=== PATIENT | female | born 1995 | race Hispanic/Latino ===

== ENCOUNTER 2025-04-22 03:31 | Inpatient (IN) | payer SELFPAY ==
[2025-04-22] VITALS (7 sets, daily range): BP systolic 90–119; BP diastolic 57–69; PULSE 57–74; RESP 12–18; TEMP 36.5–36.8; O2SAT 97–100; BMI 25.8; BMI 22.6
--- NOTE | 2025-04-22 03:45 | CT_ITS ---
PROCEDURE: ABDOMEN/PELVIS W IV CONT ONLY 04/22/2025 REASON FOR EXAM: ABD PAIN TECHNIQUE: Procedure Code: [id number] Modality: CT Procedure: ABDOMEN/PELVIS W IV CONT ONLY Coronal and Sagittal reconstruction series were provided. CONTRAST: isovue 370 VOLUME: 100 mL One or more dose reduction techniques were used (e.g., Automated exposure control, adjustment of the mA and/or kV according to patient size, use of iterative reconstruction technique. RADIATION DOSE SUMMARY: CTDI Vol 13.71 mGy DLP :713.64 mGycm COMPARISON: none FINDINGS: Average sized liver showing homogenous parenchymal attenuation. Mild intra and extra-hepatic biliary tracts dilatation down to the distal CBD with no obvious obstructing masses. Distended gall bladder showing no radiodense calculi. Normal appearance of the pancreas with clear surrounding fat planes. The spleen, adrenal glands, aorta and IVC are unremarkable. Both kidneys are of average size and showing smooth outline with preserved parenchymal thickness. No renal calculi. No hydronephrosis. Distension of the urinary bladder showing minimal uniform mural thickening with no obvious masses. No obvious masses related to the pelvic viscera. An IUCD is noted. Dilated parametrial veins. Mild free pelvic fluid, likely physiological. The appendix appears unremarkable. No right iliac inflammatory changes. Colonic fecal loading The small bowel loops are unremarkable. The stomach is unremarkable. No free air. No obvious pathologically enlarged lymph nodes. Scanned osseous structures show no osseous destruction. Scanned lung bases show no obvious abnormalities. CT/Abdomen/Pelvis W IV Cont ONLY IMPRESSION: Mild intra and extra-hepatic biliary tracts dilatation down to the distal CBD w ith no obvious obstructing masses. Advise sonography correlation. No acute pelvi-abdominal abnormalities, collections or free air. Reading Location: [place] [id number]
[2025-04-22] MEDS: DiphenhydrAMINE 50 MG/ML Syringe 25 MG IV ×2 (03:50→06:43)
[2025-04-22] MEDS: 0.9% Normal Saline (1000mL) 1,000 ML 999 ML IV (03:50)
[2025-04-22 03:53] LABS: Hematocrit 34.9 % (37-47); Hemoglobin 11.3 g/dL (12.0-15.0); Immature Granulocytes Count 0.100 X10^3/uL (0.0-0.0); Mean Corp Hgb Conc 32.4 g/dL (32-36); Mean Corpuscular Volume 84.9 fL (81-99); Mean Platelet Vol. 10.4 fl (6.2-12.0); NRBC Flagged by Analyzer 0 % (0-5); Platelet Count 214 K/mm3 (150-450); RBC Distribution Width CV 14.6 % (11.6-14.6); RBC Distribution Width SD 45.1 fl (35.1-43.9); Red Blood Count 4.11 M/mm3 (4.2-5.4); White Blood Count 15.3 K/mm3 (4.4-11.0)
[2025-04-22 04:08] LABS: Internal QC Validated? YES +Cl - CLEAR BKGD; Pregnancy, Serum, hCG Quali. NEGATIVE Negative; Record Kit Lot#, Serum Preg. 0000980607
[2025-04-22] MEDS: HYDROmorphone 0.5 MG/0.5 ML SYRINGE IV ×3 (04:24→06:40)
[2025-04-22 04:35] LABS: AST(SGOT) 731 U/L (<=31); Alanine Aminotransfer ALT/SGPT 1056 U/L (<=34); Albumin, Serum 4.5 g/dL (3.5-5.0); Alkaline Phosphatase 352 U/L (35-104); Anion Gap 12 (5-15); BUN 9 mg/dL (4-19); BUN/Creat Ratio 18.3 RATIO (10-20); Bilirubin, Direct 0.60 mg/dL (0.00-0.30); Calcium,Total 9.2 mg/dL (7.6-11.0); Carbon Dioxide 22.1 mmol/L (21.0-32.0); Chloride 105 mmol/L (98-108); Estimated Creatinine Clearance 165.37 ml/min (50-250); Globulin 3.5 g/dL (2.2-4.2); Glucose 148 mg/dL (70-99); Lipase > 3000 U/L (13-75); Potassium 3.6 mmol/L (3.3-5.1)
[2025-04-22] MEDS: Pantoprazole Sodium 40 MG in 0.9% Normal Saline (100mL MB+) 100 ML 300 MG IV (04:38)
--- NOTE | 2025-04-22 04:41 | EX.ED.DYSGE1 ---
HPI History of Present Illness Chief Complaint: Abd Pain Informant: patient Narrative Narrative: Patient is a 30-year-old female who reports no significant past medical history and that she only takes omeprazole daily. She states that she has had nausea and vomiting for the past 1 to 2 days but that this evening she had sudden increase in midepigastric abdominal pain. She denies any fevers or chills. She denies any concern for . She states has been no recent trauma. She denies alcohol use or history of gallbladder disease. However because symptoms are worsening she presents for evaluation [facility] Medical History no medical history Home Medications ?Medication ?Instructions ?Recorded ?Last Taken ?Type omeprazole 20 mg capsule,delayed 20 mg PO DAILY 04/22/25 Unknown History release Allergy/AdvReac Type Severity Reaction Status Date / Time No Known Allergies Allergy Verified 04/22/25 03:34 Family History no significant family his Surgical History no surgical history Social History Smoking Status: Never smoker ROS ROS ED Constitutional Constitutional ED: Denies chills or fever(s) Eyes Eyes: Denies change in vision ENT ENT ED: Denies sore throat Cardiovascular Cardiovascular: Denies chest pain Respiratory/Chest Respiratory/Chest: Denies cough or dyspnea Gastrointestinal Gastrointestinal: Reports abdominal pain, nausea and vomiting; Denies diarrhea Genitourinary Genitourinary ED: Denies dysuria Musculoskeletal Musculoskeletal: Denies back pain or myalgias Integumentary Denies rash Neurologic Neurologic: Denies headache(s) Hematologic/Lymphatic Hematologic/Lymphatic: Denies easy bleeding or easy bruising EXAM Physical Exam Const Vital Signs: 04/22/25 03:34 04/22/25 05:32 Temperature 98.0 F Temperature Source Oral Pulse Rate 69 60 Respiratory Rate 18 12 Blood Pressure 105/63 119/61 Blood Pressure Mean 77 80 Pulse Ox 100 100 Oxygen Delivery Method Room Air Room Air Positive well nourished and well developed General Appearance ED: well developed; Negative for pallor HEENT HEENT Narrative: Normocephalic atraumatic Eyes PERRL and EOMs intact bilaterally General Eye ED: Negative for scleral icterus Neck supple Resp normal respiratory effort and clear to auscultation bilaterally Cardio regular rate and regular rhythm Rate: other Other Details: Heart is regular rate and rhythm no murmurs rubs or gallop Radial and carotid pulses are equal and symmetric GI non-distended and no masses GI Narrative: Abdomen is soft and nondistended with normal active bowel sounds Patient has pain with palpation and voluntary guarding in the midepigastric region No pulsatile mass No peritoneal signs Auscultation: normoactive bowel sounds Palpation: soft Back/Spine no CVA tenderness Extremity normal to inspection Neuro oriented x3, CN's II-XII intact bilaterally and no sensory deficits noted Sensorium / Orientation: alert Motor Exam: strength 5/5 throughout Psych Mood & Affect: anxious Skin no rashes or lesions noted, no wounds and skin turgor normal General Skin Exam: Negative for jaundice or pallor MDM MDM MDM Narrative Medical decision making narrative: Patient arrived to the ER stable vitals. She reported 1 to 2 days of recurrent bouts of nausea and vomiting but a recent onset of pain. With pain in the midepigastric region this could be gastritis versus pancreatitis versus biliary colic or acute cholecystitis. It could also be due to a complication. With these differentials in mind basic labs and a CT scan were ordered. Labs reveal leukocytosis at 15 with left shift as neutrophil count of 12.3. However the patient was writhing in pain this could all be due to stress response and not secondary infection. The patient's liver enzymes are elevated and her lipase is greater than 3000 concerning for gallstone pancreatitis. Her test was negative indicating this is not a complication. The CT scan showed no sign of pancreatic inflammation. It did document that the gallbladder was distended with mild dilation of the intra and extrahepatic biliary tract down to the common bile duct which would correlate more with gallstone pancreatitis. However as no gallstones were seen we have to assume they are non-radiopaque and we will therefore order an ultrasound for better evaluation. The case was discussed with administrative support coordinator Dr. Fernandez. He agrees with need for ultrasound at this time to further evaluate the gallbladder and pancreas. He does recommend patient be started on lactated Ringer's as well as Zosyn with concern for potential infection based on her elevated white count. He feels that as long as the ultrasound does not suggest acute cholecystitis then the patient will be safe for admission to the hospitalist with him on his consult to discuss need for MRCP or ERCP. at this time the patient's ultrasound is still pending and therefore she will be signed out to the day physician. History & Record Review Discussion w/independent historian: Patient and Friend Lab Data Attestation: I reviewed the patient's lab results. Labs: Laboratory Results - last 24 hr 04/22/25 04/22/25 03:40 04:42 WBC 15.3 H RBC 4.11 L Hgb 11.3 L Hct 34.9 L MCV 84.9 MCH 27.5 MCHC 32.4 RDW Std Deviation 45.1 H RDW Coeff of Gwendolyn 14.6 Plt Count 214 MPV 10.4 Immature Gran % (Auto) 0.700 Neut % (Auto) 80.7 H Lymph % (Auto) 10.9 L [place] % (Auto) 7.3 Eos % (Auto) 0.2 Baso % (Auto) 0.2 Absolute Neuts (auto) 12.3 H Absolute Lymphs (auto) 1.67 Nucleated RBC % 0 Sodium 139 Potassium 3.6 Chloride 105 Carbon Dioxide 22.1 Anion Gap 12 BUN 9 Creatinine 0.49 L Estim Creat Clear Calc 165.37 Est GFR (MDRD) Non-Af 130 BUN/Creatinine Ratio 18.3 Glucose 148 H Calcium 9.2 Total Bilirubin 1.39 H Direct Bilirubin 0.60 H AST 731 H ALT 1056 H Alkaline Phosphatase 352 H Total Protein 8.0 Albumin 4.5 Globulin 3.5 Lipase > 3000 H Serum , Qual NEGATIVE Ethyl Alcohol < 10.1 Radiography Diagnostic Testing: Clinical Impression(s) from Imaging Studies Abdomen/Pelvis CT 04/22/25 03:45 IMPRESSION: Mild intra and extra-hepatic biliary tracts dilatation down to the distal CBD with no obvious obstructing masses. Advise sonography correlation. No acute pelvi-abdominal abnormalities, collections or free air. Reading [facility] Management Discussion w/another healthcare provider: Development Manager Discharge Plan Dx/Rx/DC Orders Clinical Impression: Acute gallstone pancreatitis, Elevated liver enzymes, Nausea and vomiting Disposition Disposition: Acute Care Hospital [facility]
--- NOTE | 2025-04-22 04:59 | US_ITS ---
PROCEDURE: GALLBLADDER 04/22/2025 REASON FOR EXAM: ABNORMAL CT Biliary ductal dilatation noted on prior CT TECHNIQUE: Procedure Code: USGB Modality: US Procedure: GALLBLADDER COMPARISON: CT dated 04/22/2025 FINDINGS: Liver: The liver measures 16.3 cm in size length and demonstrates normal echogenicity. No focal mass. Mild intrahepatic biliary ductal dilatation noted. Gallbladder: There are multiple gallstones noted in the gallbladder. The gallbladder is distended. A positive sonographic Tsang's sign seen. Sludge is also appreciated. No pericholecystic fluid noted. Common bile duct: Common bile duct is distended measuring 9 mm. Pancreas: Visualized portions are sonographically unremarkable. Right kidney: The right kidney is normal in size measuring 11.6 cm in length. Normal corticomedullary differentiation without hydronephrosis or renal calculi. No stone or mass. US/Gallbladder IMPRESSION: Intra and extrahepatic biliary ductal dilatation with the CBD measuring up to 9 mm as noted on previous CT. There is no gallstone seen in the visible CBD. No definitive pancreatic head mass. V bruno cated clinically consider further evaluation with MRCP. Sludge and gallstones in the gallbladder. Reading Location: [id number]
[2025-04-22 05:13] LABS: Alcohol, Blood (Medical)-Serum < 10.1 mg/dL (<=10.0)
[2025-04-22] MEDS: 0.9% Normal Saline (1000mL) 1,000 ML 250 ML IV (05:34)
[2025-04-22] MEDS: Piperacil/Tazobactam 3.375 GM in 0.9% Normal Saline (50mL MB+) 50 ML IV (06:30)
[2025-04-22] MEDS: Lactated Ringers 1,000 ML 999 ML IV (07:20)
[2025-04-22 07:45] LABS: Mucous, Urine 0 SEEN /hpf (<or=2+); Red Blood Cells-Urine 0 SEEN /hpf (0-5)
--- NOTE | 2025-04-22 08:02 | MRI_ITS ---
PROCEDURE: MRCP ABDOMEN WITHOUT CONTRAST 04/22/2025 REASON FOR EXAM: PANCREATITIS TECHNIQUE: Procedure Code: MRIMRCP Modality: MR Procedure: MRCP ABDOMEN WITHOUT CONTRAST Multi planer multisequence imaging through the abdomen and biliary tree are performed. 3D MIP images are submitted for interpretation. COMPARISON: Previous CT and ultrasounds dated April 22, 2025 FINDINGS: Pancreas: Diffuse boggy appearance of the pancreas with subtle amount of fluid surrounding the pancreatic body and tail. No abnormal fluid collection. No ductal dilatation or mass.. Biliary: Cholelithiasis. No evidence of acute cholecystitis. The distal CBD tapers rapidly from 7 mm to normal caliber of the ampulla with possible stenosis of the distal CBD. No mass. No stone. Ascites: None Lymph Nodes: No lymphadenopathy the spleen, visible kidneys and adrenal glands appear normal. Visualized liver demonstrates no mass. Other: No soft tissue abnormality. Lung bases demonstrate normal signal. MRI/MRCP Abdomen without Contrast IMPRESSION: Cholelithiasis. Small amount of fluid surrounding the pancreas consistent with diagnosis of dow creatitis. No ductal dilatation or distinct mass. Mild dilatation of the common bile duct with an abrupt narrowing of the ampulla likely from a benign-appearing stricture. No choledocholithiasis or mass. Reading Location: [id number]
--- NOTE | 2025-04-22 08:03 | PCM.HP.STD ---
HPI - General General Date of Service: 04/22/25 Chief Complaint: abdominal pain HPI Narrative ALAN HAM, is a 30 F who presents with abdominal pain. This is a 30-year-old female who does not speak Jordanian presents with 2 days of abdominal pain. I asked the patient in Paraguayan if it is okay to use Google translate to which she replied yes. So our interaction was communicated through my limited Par[place]ayan but also using Google translate for dialogue. Patient complains of 2 days of abdominal pain in the epigastric region with associated nausea and vomiting. Was very intense. Presented to the emergency room where she was noted to have pancreatitis with lipase greater than 3000. Patient had a CAT scan that showed mild intra and extrahepatic biliary duct dilation down to the distal common bile duct with no obvious obstructing masses. Ultrasound showed biliary ductal dilation of the common bile duct of 9 mm. No gallstones noted within the visible common bile duct. Patient does drink alcohol occasionally but her last consumption of alcohol was about 3 weeks ago. [ ] PFSH Medical History no medical history Home Medications ?Medication ?Instructions ?Recorded ?Last Taken ?Type omeprazole 20 mg capsule,delayed 20 mg PO DAILY 04/22/25 Unknown History release Allergy/AdvReac Type Severity Reaction Status Date / Time No Known Allergies Allergy Verified 04/22/25 03:34 Family History no significant family his no significant family history Surgical History no surgical history Social History (Updated 04/22/25 @ 08:[address] Dung Agrawal, DO) Smoking Status: Never smoker alcohol intake: current alcohol intake frequency: a few times a month ROS ROS Narrative All review of systems were negative except as mentioned above in the history of present illness and the other review of systems. Vital Signs Vital Signs Vital Signs: 04/22/25 03:34 04/22/25 05:32 04/22/25 07:17 Temperature 36.7 C Temperature Source Oral Pulse Rate 69 60 65 Respiratory Rate 18 12 12 Blood Pressure 105/63 119/61 112/63 Blood Pressure Mean 77 80 79 Pulse Ox 100 100 97 Oxygen Delivery Method Room Air Room Air Room Air 04/22/25 07:58 Temperature 36.8 C Temperature Source Pulse Rate 74 Respiratory Rate 17 Blood Pressure 112/63 Blood Pressure Mean 79 Pulse Ox 100 Oxygen Delivery Method Weight Weight: 70.5 kg Body Mass Index (BMI) 25.8 Physical Exam Const alert and no apparent distress HEENT normocephalic and head/scalp atraumatic Resp normal respiratory effort, no retractions, no use of accessory muscles and clear to auscultation bilaterally Cardio regular rate, regular rhythm, S1 normal heart sound and S2 normal heart sound GI normal to inspection, nondistended, normoactive bowel sounds and soft to palpation GI Narrative: Epigastric abdominal pain with rebound. Extremity normal to inspection and full ROM Neuro Sensorium / Orientation: awake, alert, oriented to person, oriented to place and oriented to time Psych affect normal Results Lab / Micro Data Attestation: I reviewed the patient's lab results. 04/22/25 03:40 04/22/25 03:40 Labs: Laboratory Results - last 24 hr 04/22/25 03:40: WBC 15.3 H, RBC 4.11 L, Hgb 11.3 L, Hct 34.9 L, MCV 84.9, MCH 27.5, MCHC 32.4, RDW Std Deviation 45.1 H, RDW Coeff of Gwendolyn 14.6, Plt Count 214, MPV 10.4, Immature Gran % (Auto) 0.700, Neut % (Auto) 80.7 H, Lymph % (Auto) 10.9 L, [place] % (Auto) 7.3, Eos % (Auto) 0.2, Baso % (Auto) 0.2, Absolute Neuts (auto) 12.3 H, Absolute Lymphs (auto) 1.67, Nucleated RBC % 0, Sodium 139, Potassium 3.6, Chloride 105, Carbon Dioxide 22.1, Anion Gap 12, BUN 9, Creatinine 0.49 L, Estim Creat Clear Calc 165.37, Est GFR (MDRD) Non-Af 130, BUN/Creatinine Ratio 18.3, Glucose 148 H, Calcium 9.2, Total Bilirubin 1.39 H, Direct Bilirubin 0.60 H, AST 731 H, ALT 1056 H, Alkaline Phosphatase 352 H, Total Protein 8.0, Albumin 4.5, Globulin 3.5, Lipase > 3000 H, Serum , Qual NEGATIVE 04/22/25 04:42: Ethyl Alcohol < 10.1 Imaging Radiology Impression Abdomen/Pelvis CT 04/22/25 03:45 IMPRESSION: Mild intra and extra-hepatic biliary tracts dilatation down to the distal CBD with no obvious obstructing masses. Advise sonography correlation. No acute pelvi-abdominal abnormalities, collections or free air. Reading [id number] Gall[facility]adder Ultrasound 04/22/25 04:59 IMPRESSION: Intra and extrahepatic biliary ductal dilatation with the CBD measuring up to 9 mm as noted on previous CT. There is no gallstone seen in the visible CBD. No definitive pancreatic head mass. V indicated clinically consider further evaluation with MRCP. Sludge and gallstones in the gallbladder. Reading Location: [id number] Assessment & Plan Assessment/Plan (1) Acute gallstone pancreatitis: PLAN: No visible gallstone noted on CT nor abdominal imaging. Unclear if that has passed or if there may be biliary sludge or small stones just not visualized. IV fluids, pain control, clear liquid diet. The ED deformity they reached out to Dr. Fernandez of gastroenterology who will see the patient in consultation. Check an MRCP. Unclear if patient will require an ERCP. I did reach out to general surgery who will evaluate the case to see if patient would require a cholecystectomy at some point. PLAN: Plan VTE prophylaxis with SCDs. Charges/Coding Visit Charges Inpatient E&M: 88103 Init Hosp L2
[2025-04-22 08:35] LABS: Color, Urine Yellow (Yellow); Glucose, Dipstick 50 mg/dl (Normal); Ketone-Dipstick Negative (Negative); Leukocyte Esterase-Dipstick Negative /ul (Negative); Nitrite-Dipstick Negative (Negative); Occult Blood-Urine 10 /ul (Negative); Protein-Dipstick 30 mg/dl (Negative); Specific Gravity, Urine 1.010 (1.002-1.030); Urine Bilirubin Dipstick Negative (Negative)
[2025-04-22 08:44] LABS: Squamous Epithelial Cells - UA 0-5 SEEN /hpf (5-10)
[2025-04-22] MEDS: 0.9% Normal Saline (1000mL) 1,000 ML 150 ML IV ×2 (09:09→16:12)
[2025-04-22] MEDS: HYDROmorphone Inj 0.2 MG/ML SYRINGE IV ×3 (09:23→23:25)
[2025-04-22] MEDS: 0.9% Saline Lock 10 ML Syringe IV ×3 (10:55→16:12)
--- NOTE | 2025-04-22 10:55 | NURSING ---
MRI STAFF CALLED REQUESTING PT TO BE MEDICATED FOR NAUSEA. 4MG ZOFRAN GIVEN IV
--- NOTE | 2025-04-22 12:36 | CASEMGMT ---
Social Work- SW met with pt, using hand expansion envelope maker services (ID [id number] improvement [address]) to communicate with pt. Pt reports that she resided in [place] and has only been in [place] one week and, therefore, is not eligible for H[place] or [place]. Alaina/[employer] met with pt to verify ineligibility. Pt reports that she does plan to stay in [place] permanently. Pt reports that she lives with sister at [address] Pt has two kids, one of whom pt talked about enrolling in school. Pt reports that she has not been connected with any resources, but reports that I need help. SW followed up with Alaina to update on intent to stay. Alaina will continue to look into pt YAMILE status in [place]. REJI provided lithuanian printed resources for [place], [facility], [facility], and [facility]. Dr Cisneros reached out to REJI to discuss that she would like to perform a procedure OP. REJI reached out to SW security guard supervisor to ensure that an outpatient procedure would not be an issue due to self-pay status. REJI collaborated with security guard supervisor, charge nurse, bedside nurse, and Dr Cisneros. REJI remains available to follow. ASAF Benavidez
--- NOTE | 2025-04-22 19:43 | CON.PCM.GI_ITS ---
HPI Consult Data Date of Consult: 04/22/25 HPI Narrative Reason for Consultation: Pancreatitis HPI Narrative: ALAN HAM, is a 30-year-old woman presented to the ED with abdominal pain. She was discovered to have white blood cell count of 15.3, bilirubin 1.39, AST of 731, ALT of 1056, alkaline phosphatase of 352 and a lipase greater than 3000. She had a CT scan abdomen pelvis that showed intra and extrahepatic ductal dilation down to the CBD, distended gallbladder and a normal appearance of the pancreas with clear surrounding fat planes. She had a gallbladder ultrasound that showed intra and extrahepatic ductal dilation with a common bile duct up to 9 mm as seen on previous CT scan. No definitive pancreatic head mass. She had an MRCP that showed cholelithiasis and a small amount of fluid surrounding the pancreas consistent with a diagnosis of pancreatitis. Again dilation of the common bile duct was seen with an abrupt narrowing at the ampulla. I was consulted for management of acute pancreatitis in the setting of jaundice with cholestatic hepatitis. [facility] Medical History no medical history Home Medications ?Medication ?Instructions ?Recorded ?Last Taken ?Type omeprazole 20 mg capsule,delayed 20 mg PO DAILY Unknown History release Allergy/AdvReac Type Severity Reaction Status Date / Time No Known Allergies Allergy Verified 04/22/25 03:34 Family History no significant family his Surgical History no surgical history Social History Smoking Status: Never smoker alcohol intake: current alcohol intake frequency: a few times a month ROS Constitutional Constitutional: Denies fatigue, fever(s), poor appetite, weight gain or weight loss Gastrointestinal Gastrointestinal: Denies belching, bloating, change in bowel habits, change in stool character, chewing difficulty, coffee ground emesis, constipation, cramping, diarrhea, dyspepsia, dysphagia, early satiety, excessive flatus, fecal incontinence, heartburn, hematemesis, hematochezia, hemorrhoids, loose stools, melena, nausea, odynophagia, rectal bleeding, tenesmus, vomiting or weight changes Physical Exam Const alert and no apparent distress HEENT normocephalic and head/scalp atraumatic Resp normal respiratory effort, no retractions, no use of accessory muscles and clear to auscultation bilaterally Cardio regular rate, regular rhythm, S1 normal heart sound and S2 normal heart sound GI normal to inspection, nondistended, normoactive bowel sounds and soft to palpation GI Narrative: Epigastric abdominal pain with rebound. Extremity normal to inspection and full ROM Neuro Sensorium / Orientation: awake, alert, oriented to person, oriented to place and oriented to time Psych affect normal Lab / Micro Data 04/22/25 03:40 04/22/25 03:40 Labs: Laboratory Results - last 24 hr 04/22/25 03:40: WBC 15.3 H, RBC 4.11 L, Hgb 11.3 L, Hct 34.9 L, MCV 84.9, MCH 27.5, MCHC 32.4, RDW Std Deviation 45.1 H, RDW Coeff of Gwendolyn 14.6, Plt Count 214, MPV 10.4, Immature Gran % (Auto) 0.700, Neut % (Auto) 80.7 H, Lymph % (Auto) 10.9 L, [place] % (Auto) 7.3, Eos % (Auto) 0.2, Baso % (Auto) 0.2, Absolute Neuts (auto) 12.3 H, Absolute Lymphs (auto) 1.67, Nucleated RBC % 0, Sodium 139, Potassium 3.6, Chloride 105, Carbon Dioxide 22.1, Anion Gap 12, BUN 9, C reatinine 0.49 L, Estim Creat Clear Calc 165.37, Est GFR (MDRD) Non-Af 130, BUN/Creatinine Ratio 18.3, Glucose 148 H, Calcium 9.2, Total Bilirubin 1.39 H, D irect Bilirubin 0.60 H, AST 731 H, ALT 1056 H, Alkaline Phosphatase 352 H, Total Protein 8.0, Albumin 4.5, Globulin 3.5, Lipase > 3000 H, Serum , Qual NEGATIVE 04/22/25 04:42: Ethyl Alcohol < 10.1 04/22/25 07:40: Urine Color Yellow, Urine Clarity Clear, Urine pH 6.0, Ur Specific [place] 1.010, Urine Protein 30 H, Urine Glucose (UA) 50 H, Urine Ketones Negative, Urine Occult Blood 10 H, Urine Nitrite Negative, Urine Bilirubin Negative, Urine Urobilinogen Normal, Ur Leukocyte Esterase Negative, Urine RBC 0 SEEN, Urine WBC 0 SEEN, Ur Squamous Epith Cells 0-5 SEEN, Urine Bacteria 1+, Urine Mucus 0 SEEN Imaging Radiology Impression Abdomen/Pelvis CT 04/22/25 03:45 IMPRESSION: Mild intra and extra-hepatic biliary tracts dilatation down to the distal CBD with no obvious obstructing masses. Advise sonography correlation. No acute pelvi-abdominal abnormalities, collections or free air. [id number] Gall[facility] 04/22/25 04:59 IMPRESSION: Intra and extrahepatic biliary ductal dilatation with the CBD measuring up to 9 mm as noted on previous CT. There is no gallstone seen in the visible CBD. No definitive pancreatic head mass. V indicated clinically consider further evaluation with MRCP. Sludge and gallstones in the gallbladder. Reading Location: [facility] MRCP 04/22/25 08:02 IMPRESSION: Cholelithiasis. Small amount of fluid surrounding the pancreas consistent with diagnosis of pancreatitis. No ductal dilatation or distinct mass. Mild dilatation of the common bile duct with an abrupt narrowing of the ampulla likely from a benign-appearing stricture. No choledocholithiasis or mass. Reading Location: [id number] Assessment & Plan Assessment/Plan (1) Nausea and vomiting: (2) Elevated liver enzymes: (3) Acute gallstone pancreatitis: PLAN: Plan 30-year-old woman who presented with a chief complaint of abdominal pain. The pain is described as severe, located in the epigastric and right upper quadrant areas, and began approximately 24 hours prior to arrival. It is a new onset, constant pain that radiates to her back. She also reports associated nausea and one episode of non-bloody, non-bilious emesis. She denies fever, chills, diarrhea, or change in bowel habits. She also denies a history of alcohol use or recent heavy alcohol ingestion. Her last meal was a high-fat meal prior to the onset of symptoms. * Labs: * White Blood Cell (WBC): 15.3 (elevated) * Bilirubin: 1.39 (elevated) * Aspartate Aminotransferase (AST): 731 (markedly elevated) * Alanine Aminotransferase (ALT): 1056 (markedly elevated) * Alkaline Phosphatase (ALP): 352 (elevated) * Lipase: >3000 (markedly elevated) * Imaging: * CT Abdomen/Pelvis:?Demonstrated intra- and extrahepatic ductal dilation down to the common bile duct (CBD), a distended gallbladder, and a normal- appearing pancreas with clear surrounding fat planes. * Gallbladder Ultrasound:?Confirmed intra- and extrahepatic ductal dilation and common bile duct size of 9 mm. It also showed cholelithiasis but no definitive pancreatic head mass was seen. * Magnetic Resonance Cholangiopancreatography (MRCP):?Showed cholelithiasis and a small amount of peripancreatic fluid, consistent with pancreatitis. It confirmed dilation of the CBD with an abrupt narrowing at the ampulla. A: * Acute Biliary Pancreatitis:?This is the most likely diagnosis given the elevated lipase (>3 times the upper limit of normal) in the setting of characteristic abdominal pain and the identification of cholelithiasis. * Choledocholithiasis:?Strongly suspected, causing biliary obstruction. This is supported by the abnormal liver function tests (bilirubin, AST, ALT, ALP), dilated CBD on ultrasound, and the abrupt narrowing at the ampulla seen on MRCP. The imaging findings, in particular, the CBD dilation, make a persistently obstructing stone highly likely. While the MRCP itself is not infallible for detecting small stones, especially at the ampulla, the overall clinical picture is highly suggestive. * Cholestatic Hepatitis:?The marked elevation in liver enzymes (AST, ALT, ALP, and bilirubin) points towards a cholestatic injury pattern, likely secondary to the biliary obstruction from the suspected choledocholithiasis. * Differentials:?Other considerations for pancreatitis include alcohol, hypertriglyceridemia, or drugs, but these are less likely given the patient's history and imaging findings. Acute cholangitis is a concern given the potential for obstruction but is not yet diagnosed, as the patient is afebrile. P: * Admit to the hospital:?The patient requires inpatient management for acute pancreatitis and suspected choledocholithiasis. * Nil per os (NPO):?To rest the pancreas and minimize irritation. * Aggressive intravenous (IV) hydration:?To prevent dehydration and organ failure, a cornerstone of initial pancreatitis management. * Pain control:?Administer IV analgesics as needed. * ?For the management of gallstone pancreatitis and suspected choledocholithiasis. An endoscopic retrograde cholangiopancreatography (ERCP) is indicated for biliary decompression and stone removal, especially given the jaundice and persistent evidence of obstruction. N.p.o. after midnight for ERCP tomorrow. Charges/Coding Visit Charges Inpatient E&M: 73666 Init Hosp L3
[2025-04-22 22:17] LABS: Internal QC Validated? YES +Cl - CLEAR BKGD; Pregnancy, Urine Negative Negative; Record Kit Lot#,Urine Preg 980607
[2025-04-22] MEDS: Lactated Ringers 1,000 ML 100 ML IV (23:22)
[2025-04-23] VITALS (14 sets, daily range): BP systolic 94–112; BP diastolic 56–76; PULSE 58–79; RESP 15–18; TEMP 36.3–36.9; O2SAT 95–100; BMI 22.6
--- NOTE | 2025-04-23 06:00 | EKG12_ITS ---
Test Reason : PRE OP Blood Pressure : */* mmHG Vent. Rate : 65 BPM Atrial Rate : 214 BPM P-R Int : * ms QRS Dur : 210 ms QT Int : 482 ms P-R-T Axes : 45 95 201 degrees QTcB Int : 501 ms unable to determine rhythm baseline artifact, probable NSR Rightward axis Non-specific intra-ventricular conduction block Abnormal ECG No previous ECGs available Confirmed by Mateo Nation ([id number]), avid editor CHRISTOPHER CARRILLO ([id number]) on 04/23/2025 9:16:29 AM Referred By: GAURAV Confirmed By: Mateo Nation
[2025-04-23 06:32] LABS: Hematocrit 29.2 % (37-47); Hemoglobin 9.4 g/dL (12.0-15.0); Immature Granulocytes Count 0.030 X10^3/uL (0.0-0.0); Mean Corp Hgb Conc 32.2 g/dL (32-36); Mean Corpuscular Volume 86.1 fL (81-99); Mean Platelet Vol. 10.8 fl (6.2-12.0); NRBC Flagged by Analyzer 0 % (0-5); Platelet Count 206 K/mm3 (150-450); RBC Distribution Width CV 15.1 % (11.6-14.6); RBC Distribution Width SD 48.0 fl (35.1-43.9); Red Blood Count 3.39 M/mm3 (4.2-5.4); White Blood Count 8.8 K/mm3 (4.4-11.0)
[2025-04-23 07:10] LABS: AST(SGOT) 161 U/L (<=31); Alanine Aminotransfer ALT/SGPT 536 U/L (<=34); Albumin, Serum 3.6 g/dL (3.5-5.0); Alkaline Phosphatase 234 U/L (35-104); Anion Gap 8 (5-15); BUN 5 mg/dL (4-19); BUN/Creat Ratio 11.5 RATIO (10-20); Calcium,Total 8.5 mg/dL (7.6-11.0); Carbon Dioxide 23.8 mmol/L (21.0-32.0); Chloride 107 mmol/L (98-108); Estimated Creatinine Clearance 157.49 ml/min (50-250); Globulin 2.8 g/dL (2.2-4.2); Glucose 94 mg/dL (70-99); Potassium 3.0 mmol/L (3.3-5.1)
--- NOTE | 2025-04-23 07:22 | EX.PCM.CON.S ---
Assessment & Plan Assessment/Plan (1) Acute gallstone pancreatitis: (2) Elevated liver enzymes: (3) Nausea and vomiting: QUALIFIERS: Vomiting type: unspecified Qualified Code(s): R11.2 - Nausea with vomiting, unspecified PLAN: Plan I have been consulted in conjunction with Dr. Cisneros. She will independently evaluate this patient. Patient is a 30 y/o F whom is Tanzanian speaking only. She presented with a 1 month history of vomiting and intermittent abdominal pain. Patient has had a 2 day history of severe amount of abdominal pain in the RUQ and epigastric region. RUQ u/s and MRCP demonstrated dilated common bile duct with gallstones noted in the gallbladder and positive sonographic Tsang's sign. Patient is scheduled for an ERCP today with dr. Fernandez. Dr. Cisneros will plan to perform a robotic assisted laparoscopic cholecystectomy with possible cholangiogram. Procedure details, risks and benefits have been explained to the patient via ipad seismograph supervisor. Patient has had the opportunity to ask and have questions answered. Patient verbally understands and agrees with the proposed plan. Thank you for allowing us to participate in this patient's care. HPI Consult Data Date of Consult: 04/23/25 HPI Narrative Reason for Consultation: Acute gallstone pancreatitis HPI Narrative: ALAN HAM, is a 30 F who is Tanzanian speaking only, presents with acute onset of abdominal pain. Communication was provided via ipad seismograph supervisor during the entire visit. Patient states she has been vomiting for approximately 1 month. She associated the vomiting with greasy foods. She notes being placed on 20 mg omeprazole daily, which she states helped with her symptoms. She notes 2 days ago the abdominal pain became worse and was located in the epigastric region. She notes associated vomiting and nausea with the pain. She noted because of her symptoms she came into the ED. She notes a history of a approximately 13 years ago as her only abdominal surgery. She denies any previous cardiac or pulmonary concerns. She notes having 2 children. She is staying with her sister here in [place]. CT scan ab/pel, RUQ u/s, and MRCP were completed and demonstrated: IMPRESSION: Mild intra and extra-hepatic biliary tracts dilatation down to the distal CBD with no obvious obstructing masses. Advise sonography correlation. No acute pelvi-abdominal abnormalities, collections or free air. IMPRESSION: Intra and extrahepatic biliary ductal dilatation with the CBD measuring up to 9 mm as noted on previous CT. There is no gallstone seen in the visible CBD. No definitive pancreatic head mass. V indicated clinically consider further evaluation with MRCP. Sludge and gallstones in the gallbladder. IMPRESSION: Cholelithiasis. Small amount of fluid surrounding the pancreas consistent with diagnosis of pancreatitis. No ductal dilatation or distinct mass. Mild dilatation of the common bile duct with an abrupt narrowing of the ampulla likely from a benign-appearing stricture. No choledocholithiasis or mass. Labs: WBC 15.3--> 8.8, Hgb 11.3--> 9.4, Hct 34.9--> 29.2, Plt 214--> 206. Liver enzymes: T, Bili. 1.39--> 0.74, AST 731--> 161, ALT 1056--> 536, Alk Phos 352--> 234. Lipase >3000--> 543 PFSH Medical History no medical history Home Medications ?Medication ?Instructions ?Recorded ?Last Taken ?Type omeprazole 20 mg capsule,delayed 20 mg PO DAILY 04/22/25 Unknown History release Allergy/AdvReac Type Severity Reaction Status Date / Time No Known Allergies Allergy Verified 04/22/25 03:34 Family History no significant family his Surgical History no surgical history Social History Smoking Status: Never smoker alcohol intake: current alcohol intake frequency: a few times a month ROS Constitutional Constitutional: Reports systems reviewed and no addt'l complaints, except as documented Eyes Eyes: Reports systems reviewed and no addt'l complaints, except as documented ENT HEENT: Reports systems reviewed and no addt'l complaints, except as documented Cardiovascular Cardiovascular: Reports systems reviewed and no addt'l complaints, except as documented Respiratory/Chest Respiratory/Chest: Reports systems reviewed and no addt'l complaints, except as documented Gastrointestinal Gastrointestinal: Reports systems reviewed and no addt'l complaints, except as documented Genitourinary Genitourinary: Reports systems reviewed and no addt'l complaints, except as documented Musculoskeletal Musculoskeletal: Reports systems reviewed and no addt'l complaints, except as documented Integumentary Integumentary: Reports systems reviewed and no addt'l complaints, except as documented Neurologic Neurologic: Reports systems reviewed and no addt'l complaints, except as documented Psychiatric Psychiatric: Reports systems reviewed and no addt'l complaints, except as documented Endocrine Endocrinology: Reports systems reviewed and no addt'l complaints, except as documented Hematologic/Lymphatic Hematologic/Lymphatic: Reports systems reviewed and no addt'l complaints, except as documented Allergic/Immunologic Allergic/Immunologic: Reports systems reviewed and no addt'l complaints, except as documented Physical Exam Const alert, oriented x3 and no apparent distress HEENT normocephalic and head/scalp atraumatic Eyes PERRL Neck full ROM Resp normal respiratory effort and clear to auscultation bilaterally Cardio regular rate and regular rhythm GI GI Narrative: Abdomen- RUQ and epigastric pain with palpation. Soft. Positive bowel sounds no CVA tenderness Back/Spine no CVA tenderness Extremity normal to inspection Skin no rashes or lesions noted Neuro no focal motor deficits and no sensory deficits noted Psych mental status grossly normal and thought process normal Lab / Micro Data 04/23/25 05:59 04/23/25 05:59 Labs: Laboratory Results - last 24 hr 04/22/25 07:40: Urine Color Yellow, Urine Clarity Clear, Urine pH 6.0, Ur Specific [place] 1.010, Urine Protein 30 H, Urine Glucose (UA) 50 H, Urine Ketones Negative, Urine Occult Blood 10 H, Urine Nitrite Negative, Urine Bilirubin Negative, Urine Urobilinogen Normal, Ur Leukocyte Esterase Negative, Urine RBC 0 SEEN, Urine WBC 0 SEEN, Ur Squamous Epith Cells 0-5 SEEN, Urine Bacteria 1+, Urine Mucus 0 SEEN, Urine Test Negative 04/23/25 05:59: WBC 8.8, RBC 3.39 L, Hgb 9.4 L, Hct 29.2 L, MCV 86.1, MCH 27.7, MCHC 32.2, RDW Std Deviation 48.0 H, RDW Coeff of Gwendolyn 15.1 H, Plt Count 206, MPV 10.8, Immature Gran % (Auto) 0.300, Neut % (Auto) 62.1, Lymph % (Auto) 29.7, [place] % (Auto) 7.1, Eos % (Auto) 0.6, Baso % (Auto) 0.2, Absolute Neuts (auto) 5.4, Absolute Lymphs (auto) 2.60, Nucleated RBC % 0, Sodium 139, Potassium 3.0 L, Chloride 107, Carbon Dioxide 23.8, Anion Gap 8, BUN 5, Creatinine 0.47 L, Estim Creat Clear Calc 157.49, Est GFR (MDRD) Non-Af 131, BUN/Creatinine Ratio 11.5, Glucose 94, Calcium 8.5, Total Bilirubin 0.74, AST 161 H, ALT 536 H, Alkaline Phosphatase 234 H, Total Protein 6.4, Albumin 3.6, Globulin 2.8, Albumin/Globulin Ratio 1.3 Imaging Radiology Impression Gallbladder Ultrasound 04/22/25 04:59 IMPRESSION: Intra and extrahepatic biliary ductal dilatation with the CBD measuring up to 9 mm as noted on previous CT. There is no gallstone seen in the visible CBD. No definitive pancreatic head mass. V indicated clinically consider further evaluation with MRCP. Sludge and gallstones in the gallbladder. Reading Location: [facility] MRCP 04/22/25 08:02 IMPRESSION: Cholelithiasis. Small amount of fluid surrounding the pancreas consistent with diagnosis of pancreatitis. No ductal dilatation or distinct mass. Mild dilatation of the common bile duct with an abrupt narrowing of the ampulla likely from a benign-appearing stricture. No choledocholithiasis or mass. Reading Location: [facility] Charges/Coding Visit Charges Inpatient E&M: 02806 Init Hosp L2
--- NOTE | 2025-04-23 07:38 | PCM.PN.HOSP ---
Reason for Visit Chief Complaint: abdominal pain Subjective Subjective Using Google translate with the patient's permission and my limited Kazakh patient is feeling much better, but still having epigastric abdominal pain. Objective Data Objective Data Vital Signs: Vital Signs Temp Pulse Resp BP Pulse Ox O2 Del Method 36.6 C 68 16 105/70 99 Room Air 04/23/25 05:50 04/23/25 05:50 04/23/25 05:50 04/23/25 05:50 04/23/25 05:50 04/23/25 05:50 Oxygen Delivery Method Room Air Weight: 61.9 kg Body Mass Index (BMI) 22.6 Intake & Output: Intake and Output for Last 24 Hours 04/21/25 04/22/25 04/23/25 23:59 23:59 23:59 Intake Total 4459.17 / 4459.17 Balance 4459.17 / 4459.17 Lab / Micro Data 04/23/25 05:59 04/23/25 05:59 Labs: Laboratory Results - last 24 hr 04/22/25 07:40: Urine Color Yellow, Urine Clarity Clear, Urine pH 6.0, Ur Specific [place] 1.010, Urine Protein 30 H, Urine Glucose (UA) 50 H, Urine Ketones Negative, Urine Occult Blood 10 H, Urine Nitrite Negative, Urine Bilirubin Negative, Urine Urobilinogen Normal, Ur Leukocyte Esterase Negative, Urine RBC 0 SEEN, Urine WBC 0 SEEN, Ur Squamous Epith Cells 0-5 SEEN, Urine Bacteria 1+, Urine Mucus 0 SEEN, Urine Test Negative 04/23/25 05:59: WBC 8.8, RBC 3.39 L, Hgb 9.4 L, Hct 29.2 L, MCV 86.1, MCH 27.7, MCHC 32.2, RDW Std Deviation 48.0 H, RDW Coeff of Gwendolyn 15.1 H, Plt Count 206, MPV 10.8, Immature Gran % (Auto) 0.300, Neut % (Auto) 62.1, Lymph % (Auto) 29.7, [place] % (Auto) 7.1, Eos % (Auto) 0.6, Baso % (Auto) 0.2, Absolute Neuts (auto) 5.4, Absolute Lymphs (auto) 2.60, Nucleated RBC % 0, Sodium 139, Potassium 3.0 L, Chloride 107, Carbon Dioxide 23.8, Anion Gap 8, BUN 5, Creatinine 0.47 L, Estim Creat Clear Calc 157.49, Est GFR (MDRD) Non-Af 131, BUN/Creatinine Ratio 11.5, Glucose 94, Calcium 8.5, Total Bilirubin 0.74, AST 161 H, ALT 536 H, Alkaline Phosphatase 234 H, Total Protein 6.4, Albumin 3.6, Globulin 2.8, Albumin/Globulin Ratio 1.3 Radiography Diagnostic Testing: Radiology Impression MRCP 04/22/25 08:02 IMPRESSION: Cholelithiasis. Small amount of fluid surrounding the pancreas consistent with diagnosis of pancreatitis. No ductal dilatation or distinct mass. Mild dilatation of the common bile duct with an abrupt narrowing of the ampulla likely from a benign-appearing stricture. No choledocholithiasis or mass. Reading Location: [facility] Physical Exam Const alert and no apparent distress Constitutional Narrative: appears much more comfortable today. Resp normal respiratory effort, no retractions, no use of accessory muscles and clear to auscultation bilaterally Cardio regular rate, regular rhythm, S1 normal heart sound and S2 normal heart sound GI normal to inspection, nondistended, normoactive bowel sounds, soft to palpation and non-distended GI Narrative: epigastric abdominal pain. Extremity normal to inspection and full ROM Neuro Sensorium / Orientation: awake and alert Assessment & Plan Assessment/Plan (1) Acute gallstone pancreatitis: PLAN: No visible gallstone noted on CT nor abdominal imaging. IV fluids, pain control, clear liquid diet. The ED deformity they reached out to Dr. Fernandez of gastroenterology who will see the patient in consultation. MRCP shows cholelithiasis. Mild dialteion of the common bile duct with abrupt narrowing of the ampulla from stricture. ERCP pending PLAN: Plan VTE prophylaxis with SCDs. Charges/Coding Visit Charges Inpatient E&M: 80662 Subs Hosp L2
--- NOTE | 2025-04-23 08:00 | EKG12_ITS ---
Test Reason : PRE OP Blood Pressure : */* mmHG Vent. Rate : 63 BPM Atrial Rate : 63 BPM P-R Int : 166 ms QRS Dur : 94 ms QT Int : 420 ms P-R-T Axes : 64 58 27 degrees QTcB Int : 429 ms Normal sinus rhythm with sinus arrhythmia Normal ECG When compared with ECG of 23-Apr-2025 05:12, MANUAL COMPARISON REQUIRED DATA IS UNCONFIRMED Confirmed by Mateo Nation [id number]), market editor CHRISTOPHER CARRILLO ([id number]) on 04/23/2025 1:27:42 PM Referred By: Confirmed By: Mateo Nation
[2025-04-23] MEDS: 0.9% Saline Lock 10 ML Syringe IV (08:16)
--- NOTE | 2025-04-23 08:28 | RAD_ITS ---
PROCEDURE: ERCP BILIARY/PANCREAS; O.R. FLUORO FOR C-ARM 04/23/2025 REASON FOR EXAM: ABD PAIN TECHNIQUE: Procedure Code: RADERCP; RADORFL_C_ARM Modality: DX Procedure: ERCP BILIARY/PANCREAS; O.R. FLUORO FOR C-ARM Fluoroscopy time: 95.8 seconds. Dose: 16.15 mGy. RAD/O.R. Fluoro for C-Arm IMPRESSION: Intraoperative fluoroscopy was performed for ERCP. 8 fluoroscopic images were also obtained. Reading Location: [id number]
--- NOTE | 2025-04-23 08:28 | RAD_ITS ---
PROCEDURE: ERCP BILIARY/PANCREAS; O.R. FLUORO FOR C-ARM 04/23/2025 REASON FOR EXAM: ABD PAIN TECHNIQUE: Procedure Code: RADERCP; RADORFL_C_ARM Modality: DX Procedure: ERCP BILIARY/PANCREAS; O.R. FLUORO FOR C-ARM Fluoroscopy time: 95.8 seconds. Dose: 16.15 mGy. RAD/ERCP Biliary/Pancreas IMPRESSION: Intraoperative fluoroscopy was performed for ERCP. 8 fluoroscopic images were also obtained. Reading Location: [id number]
[2025-04-23 08:57] LABS: Lipase 543 U/L (13-75)
--- NOTE | 2025-04-23 08:57 | EX.PCM.PN.GI ---
Subjective Subjective 30y/o female admitted with gallstone pancreatitis and biliary obstruction. Moroccan speaking; communication facilitated using a hospital laboratory technician archana. This am she reports abdominal pain improvement from 10/10 to 08/12 after Toradol. Denies N/V, chest pain, SOB or palpitations. Tolerating IVF. - PMH Cesarian section 13 years ago, 5 years ago, ectopic 8 months ago - was on Omeprazole at home prior to admission for at least 1 month - was experiencing N/V post meals x1 month - denies any fevers - denies any hematemesis - denies any change in bowle habits Objective Data Objective Data RRR on repeat EKG, no evidence of A. Fib Vital Signs: Vital Signs Temp Pulse Resp BP Pulse Ox O2 Del Method 98 F 68 16 105/70 99 Room Air 04/23/25 05:50 04/23/25 05:50 04/23/25 05:50 04/23/25 05:50 04/23/25 05:50 04/23/25 05:50 Oxygen Delivery Method Room Air Weight: 136 lb 7.458 oz Body Mass Index (BMI) 22.6 Intake & Output: Intake and Output for Last 24 Hours 04/21/25 04/22/25 04/23/25 23:59 23:59 23:59 Intake Total 4459.17 / 4459.17 Balance 4459.17 / 4459.17 Lab / Micro Data Attestation: I reviewed the patient's lab results. 04/23/25 05:59 04/23/25 05:59 Labs: Laboratory Results - last 24 hr 04/22/25 07:40: Urine Test Negative 04/23/25 05:59: WBC 8.8, RBC 3.39 L, Hgb 9.4 L, Hct 29.2 L, MCV 86.1, MCH 27.7, MCHC 32.2, RDW Std Deviation 48.0 H, RDW Coeff of Gwendolyn 15.1 H, Plt Count 206, MPV 10.8, Immature Gran % (Auto) 0.300, Neut % (Auto) 62.1, Lymph % (Auto) 29.7, [place] % (Auto) 7.1, Eos % (Auto) 0.6, Baso % (Auto) 0.2, Absolute Neuts (auto) 5.4, Absolute Lymphs (auto) 2.60, Nucleated RBC % 0, Sodium 139, Potassium 3.0 L, Chloride 107, Carbon Dioxide 23.8, Anion Gap 8, BUN 5, Creatinine 0.47 L, Estim Creat Clear Calc 157.49, Est GFR (MDRD) Non-Af 131, BUN/Creatinine Ratio 11.5, Glucose 94, Calcium 8.5, Total Bilirubin 0.74, AST 161 H, ALT 536 H, Alkaline Phosphatase 234 H, Total Protein 6.4, Albumin 3.6, Globulin 2.8, Albumin/Globulin Ratio 1.3 Radiography Diagnostic Testing: Radiology Impression MRCP 04/22/25 08:02 IMPRESSION: Cholelithiasis. Small amount of fluid surrounding the pancreas consistent with diagnosis of pancreatitis. No ductal dilatation or distinct mass. Mild dilatation of the common bile duct with an abrupt narrowing of the ampulla likely from a benign-appearing stricture. No choledocholithiasis or mass. Reading Location: [facility] [place] Rhythm Strip Rhythm Strip: Sinus Rhythm Physical Exam Narrative A&Ox3, Moroccan speaking and hospital laboratory technician archana Const no apparent distress, average body habitus and healthy appearing General Appearance: well developed Eyes PERRL Neck full ROM Chest inspection of chest normal Resp Effort and Inspection: able to speak in complete sentences and symmetric chest movement Auscultation: clear to auscultation bilaterally Cardio Rate: regular rate Rhythm: regular rhythm GI GI Narrative: ABD soft, non-distended, mild epigastric tenderness without guarding Extremity Peripheral Pulses: Yes pulses 2+ throughout Assessment & Plan Assessment/Plan (1) Acute gallstone pancreatitis: (2) Elevated liver enzymes: PLAN: Plan 30y/o Moroccan speaking female admitted with acute gallstone pancreatitis secondary to choledocholithiasis. MRCP revealed cholelithiasis with intra and extrahepatic ductal dilation (CBD 9mm) and mild peripancreatic fluid, consistent with pancreatitis. Initial lipase 3000, now improved to 543, reflecting resolving pancreatitis. Liver chemistries are improving (AST 161, ALT 536, ALP 234, T bili 0.74). Pain has improved with Toradol, and she currently denies any N/V, chest pain, SOB or palpitations. Repeat EKG confirmed NSR, initial irregularity likely artifact. Potassium low at 3.3 today and will be replaced with 40 mEq KCL. She is stable on LR at 100ml/hr and IV pantoprazole. Plan is to proceed with ERCP this afternoon for biliary decompression following potassium replacement. Continue NPO, maintain IVF (LR @ 100/h), monitor pain and recheck CBC, CMP in am. Seen by surgery and plan for CCX tomorrow. Communication facilitated via hospital laboratory technician archana; tonio verbalized understanding and agreement with plan.
[2025-04-23] MEDS: Lactated Ringers 1,000 ML 100 ML IV (10:27)
--- NOTE | 2025-04-23 10:27 | CASEMGMT ---
Dx:gallstone pancreatitis LACE:1 6-Clicks:24 Medical record reviewed and patient evaluated for identification of discharge planning needs. Based on this review, at this time criteria are not present to indicate a need for discharge planning. Will remain available to assist with discharge planning needs as identified or requested.
[2025-04-23] MEDS: Potassium Chloride Oral Tablet 20 MEQ 40 MEQ PO (10:28)
[2025-04-23] MEDS: Pantoprazole Sodium 40 MG in 0.9% Normal Saline (100mL MB+) 100 ML 300 MG IV (10:29)
--- NOTE | 2025-04-23 13:10 | CASEMGMT ---
Social Work- SW followed up with [facility] on pt residential status. [facility] to meet with pt to complete HCAP. Pt reports that she has been in the [place] for three years on a work visa from [place] and plans to stay in the [place] for [place]. SW continues to follow for any additional needs. ASAF Benavidez
--- NOTE | 2025-04-23 14:04 | PCM.PRE.AN2 ---
ASA Classification* ASA Classification ASA Classification: 2 Assessment & Plan Anesthesia* Anesthesia Assessment Anesthesia Assessment: Discussed sedation and/or anesthesia options, risks, benefits, and alternatives with patient/parents/legal guardian/POA. Questions invited. The patient/parents/legal guardian/POA seems to understand and agrees to proceed with anesthesia plan. Reviewed the physical assessment, medical history, allergy history and patient home medications list prior to surgery/procedure/anesthetic and documented any changes. Performed airway and anesthesia risk assessments. Anesthesia Type Anesthesia Type: General Anesthesia Focused Assessment* Temperature: 98.4 F Pulse Rate: 58 Blood Pressure: 101/60 Respiratory Rate: 16 Pulse Ox: 100 Airway Assessment Mouth opens: >3 cm Mallampati Score: II Labs Anesthesia Preop lab: CBC WBC, (4.4-11.0) 8.8 K/mm3 Today, 05:59 RBC, (4.2-5.4) 3.39 M/mm3 L Today, 05:59 Hgb, (12.0-15.0) 9.4 g/dL L Today, 05:59 Hct, (37-47) 29.2 % L Today, 05:59 Plt Count, (150-450) 206 K/mm3 Today, 05:59 CHEMISTRY Potassium, (3.3-5.1) 3.0 mmol/L L Today, 05:59 Sodium, (133-145) 139 mmol/L Today, 05:59 BUN, (4-19) 5 mg/dL Today, 05:59 Creatinine, (0.70-1.20) 0.47 mg/dL L Today, 05:59 Glucose, (70-99) 94 mg/dL Today, 05:59 COAG Urine Test Negative Negative 04/22/25, 07:40 Pre-Assessment Diagnosis/Proposed Procedure Planned Operative Procedure(s): ERCP Anesthesia History Anesthesia History - director presales: Anesthesia History - director presales Hx Hospitalization Any Problems With Anesthesia No 04/23/25 05:15 Cholinesterase deficiency No 04/23/25 05:15 You/Your Family Experience No 04/23/25 05:15 fever (hyperthermia) with Relationship Recent Exposure to Contagious No 04/23/25 05:15 Disease Does patient have nerve No 04/23/25 05:15 stimulator Patient instructed to have No 04/23/25 05:15 device shut off --Does patient have Pacemaker No 04/23/25 11:58 or ICD? When Was Last Pacemaker Check QUESTION #4 FULL TEXT: You/Your Family Experience fever (hyperthermia) with Anesthesia Last Oral Intake Last Oral intake: Last Oral Intake NPO since 00:00 04/23/25 11:58 Meds taken in AM with sips of Yes 04/23/25 11:58 water? Meds patient instructed to See MAR 04/23/25 11:58 take am of surgery PONV PONV - director presales: PONV - director presales Female HX of Motion Sickness HX of N/V After Surgery Non-Smoker Duration of Surgery greater than 60 minutes Number of Risk Factors PONV Score Height & Weight Height & Weight: Anesthesia: Height & Weight Height 5 ft 5 in 04/23/25 11:58 Weight: 61.9 kg 04/23/25 11:58 Body Mass Index (BMI) 22.6 04/23/25 11:58 Respiratory Assessment Respiratory Assessment - director presales: Respiratory Tract Infection Hx - director presales Hx Respiratory Tract Infection No 04/23/25 05:15 STOP Sleep Apnea STOP Sleep Apnea - director presales: STOP Sleep Apnea - director presales Hx Hypertension No 04/22/25 08:25 Hx Sleep Apnea No 04/22/25 08:25 CPAP BIPAP Do you snore loudly (louder No 04/22/25 08:25 than talking or can be heard Do you often feel tired/ No 04/22/25 08:25 fatigued/ sleepy during daytime? Has anyone observed you stop No 04/22/25 08:25 breathing during sleep? STOP Results Negative 04/22/25 08:25 QUESTION #5 FULL TEXT : Do you snore loudly (louder than talking or can be heard through closed doors)? 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 Specify any problems Hx of Preganancy in last 3 N/A 04/22/25 08:25 Months Nurse Filling Out Transfusion MODE 04/22/25 08:25 & Questions: Date: 04/22/25 04/22/25 08:25 Time: 09:30 04/22/25 08:25 Patient unable to answer at this time (ie. confused, unrespo /Reproduction History /Reproductive History - director presales: /Reproductive Hx- director presales Hx Now No 04/23/25 05:15 Gestational Age (in weeks): EDC: Hx Hx Para Hx Section SAB No 04/23/25 05:15 Active Medications Active Medications: Current Medications Generic Name Dose Route Start Last Admin Trade Name Freq PRN Reason Stop Dose Admin Hydromorphone HCl 0.2 mg 04/22/25 09:00 04/22/25 23:25 Hydromorphone Inj 0.2 Mg/Ml Syringe IV 0.2 mg Q3H PRN PRN Administration Pain Score 6-10 Sodium Chloride 250 mls @ 15 mls/hr 04/22/25 09:35 IV .[id number] PRN Saline Flush Sodium Chloride 250 mls @ 15 mls/hr 04/22/25 09:35 IV .[id number] PRN Additional IVPB Infusion Lactated Ringer's 1,000 mls @ 100 mls/hr 04/22/25 22:45 04/23/25 13:49 IV 0 mls/hr .Q10H CHRISTIAN Infusion Indocyanine Green 3.75 mg/ N/A 1.5 mls @ 999 mls/hr 04/24/25 12:15 IV 04/24/25 12:16 PREOP ONE Piperacillin Sod/Tazobactam 50 mls @ 12.5 mls/hr 04/23/25 14:00 Sod 3.375 gm/ Sodium Chloride IV Q8 CHRISTIAN Pantoprazole Sodium 40 mg/ 100 mls @ 300 mls/hr 04/24/25 10:00 Sodium Chloride IV Q24 CHRISTIAN Ketorolac Tromethamine 15 mg 04/22/25 09:00 04/23/25 08:16 Ketorolac 15 Mg/Ml Vial IV 04/27/25 09:01 15 mg Q6H PRN PRN Administration Pain Score 1-10 Ondansetron HCl 4 mg 04/22/25 09:00 04/22/25 10:54 Ondansetron 4 Mg/2 Ml Vial IV 4 mg Q8H PRN PRN Administration NAUSEA/VOMITING Sodium Chloride 10 - 40 ml 04/22/25 09:35 04/23/25 08:16 0.9% Saline Lock 10 Ml Syringe IV 10 ml UD PRN Administration SALINE FLUSH PFSH Medical History no medical history Home Medications ?Medication ?Instructions ?Recorded ?Last Taken ?Type omeprazole 20 mg capsule,delayed 20 mg PO DAILY 04/22/25 Unknown History release Allergy/AdvReac Type Severity Reaction Status Date / Time No Known Allergies Allergy Verified 04/22/25 03:34 Family History no significant family his Surgical History no surgical history Social History Smoking Status: Never smoker alcohol intake: current alcohol intake frequency: a few times a month Review of Systems (Anesthesia) ROS Narrative System reviewed and no additional complaints, except as documented.
--- NOTE | 2025-04-23 14:27 | NURSING ---
1422 pantry attendant used via ipad . Bottle Blowing Machine Tender reviewed consent , procedure and anesthesia . Dr Bobby Alex RN
[2025-04-23] MEDS: Piperacil/Tazobactam 3.375 GM in 0.9% Normal Saline (50mL MB+) 50 ML IV ×2 (14:44→23:45)
--- NOTE | 2025-04-23 15:33 | PCM.POST.ANE ---
Anesthesia: Postop Eval I Current Vital Signs Temperature: 97.9 F Pulse Rate: 79 Blood Pressure: 98/59 Respiratory Rate: 16 Pulse Ox: 95 Oxygen Delivery Method: Room Air Assessment Airway patent: Yes Spontaneous unlabored respirations: Yes Mental status: Asleep nausea: No Vomiting: No Anesthesia Complication: No Fluid Hydration Crystalloid volume administer (ml): 700 Total IV fluid infused: 700 Progress Note Anesthesia document: Postop Eval 1 completed: Yes
--- NOTE | 2025-04-23 15:38 | OP.ERCP_ITS ---
Patient Name: Dudley Perea Procedure Date: 04/23/2025 2:26 PM Date of : 1995 Age: 30 Procedure: ERCP Indications: Bile duct stone(s), Abnormal abdominal CT, Abnormal MRCP, Abnormal abdominal ultrasound, Biliary dilation on Ultrasound, Evaluation and possible treatment of bile duct stone(s), Jaundice, Elevated liver enzymes Providers: Vinod Fernandez DO Medicines: Monitored Anesthesia Care Patient Profile: This is a 30 year old female. Refer to note in patient chart for documentation of history and physical. Patient has symptoms of acute abdominal cramping, acute right upper quadrant abdominal pain and acute jaundice. Complications: No immediate complications. Procedure: Pre-Anesthesia Assessment: - Prior to the procedure, a History and Physical was performed, and patient medications and allergies were reviewed. The patient is competent. The risks and benefits of the procedure and the sedation options and risks were discussed with the patient. All questions were answered and informed consent was obtained. Patient identification and proposed procedure were verified by the physician in the pre-procedure area. Mental Status Examination: alert and oriented. Airway Examination: normal oropharyngeal airway and neck mobility. Respiratory Examination: clear to auscultation. CV Examination: normal. ASA Grade Assessment: II - A patient with mild systemic disease. After reviewing the risks and benefits, the patient was deemed in satisfactory condition to undergo the procedure. The anesthesia plan was to use general anesthesia. Immediately prior to administration of medications, the patient was re-assessed for adequacy to receive sedatives. The heart rate, respiratory rate, oxygen saturations, blood pressure, adequacy of pulmonary ventilation, and response to care were monitored throughout the procedure. The physical status of the patient was re-assessed after the procedure. After obtaining informed consent, the scope was passed under direct vision. Throughout the procedure, the patient's blood pressure, pulse, and oxygen saturations were monitored continuously. The Duodenoscope was introduced through the mouth, and advanced to the duodenum and used to inject contrast into the bile duct. The ERCP was accomplished without difficulty. The patient tolerated the procedure well. Scope In: 3:00:10 PM Scope Out: 3:11:28 PM Total Procedure Duration Time 0 hours 11 minutes 18 seconds Findings: The bile duct was deeply cannulated with the short-nosed traction sphincterotome. Contrast was injected. Opacification of the entire opacified area, main bile duct, common bile duct, cystic duct, gallbladder, common hepatic duct, hepatic duct bifurcation, left and right hepatic ducts and all intrahepatic branches and entire biliary tree was successful. The maximum diameter of the ducts was 10 mm. The lower third of the main bile duct contained a single localized stenosis 6 mm in length. The main bile duct, common bile duct and common hepatic duct were moderately dilated and diffusely dilated, with a stone causing an obstruction. The largest diameter was 5 mm. Placement of a long 0.025 inch Jagwire into the biliary tree was attempted. This passed successfully. A 5 mm biliary sphincterotomy was made with a traction (standard) sphincterotome using ERBE electrocautery. There was no post-sphincterotomy bleeding. The biliary tree was swept with a 12 mm balloon starting at the upper third of the main bile duct, middle third of the main bile duct, lower third of the main duct, cystic duct, bifurcation, left intrahepatic duct(s), left main hepatic duct, right intrahepatic duct(s) and right main hepatic duct. Sludge was swept from the duct. All stones were removed. One 10 Fr by 5 cm temporary stent was placed 5 cm into the common bile duct. Bile flowed through the stent. The stent was in good position. The total fluoroscopy exposure time was 3 seconds. A total of 3 mL of full strength ionic contrast was injected into the biliary tree. The light bulb assembler film was normal. The esophagus was successfully intubated under direct vision. The scope was advanced to a normal major papilla in the descending duodenum without detailed examination of the pharynx, larynx and associated structures, and upper GI tract. The upper GI tract was grossly normal. The bile duct was deeply cannulated. Contrast was injected. Impression: - A single localized biliary stricture was found in the lower third of the main bile duct. The stricture was benign appearing. - The entire main bile duct, common bile duct and common hepatic duct were moderately dilated, with a stone causing an obstruction. - Choledocholithiasis was found. Complete removal was accomplished by biliary sphincterotomy and balloon extraction. - A biliary sphincterotomy was performed. - The biliary tree was swept. - One temporary stent was placed into the common bile duct. Procedure Code(s): --- Professional --- 46177, Endoscopic retrograde cholangiopancreatography (ERCP); with removal and exchange of stent(s), biliary or pancreatic duct, including pre- and post-dilation and guide wire passage, when performed, including sphincterotomy, when performed, each stent exchanged 57214, 59, Endoscopic retrograde cholangiopancreatography (ERCP); with placement of endoscopic stent into biliary or pancreatic duct, including pre- and post-dilation and guide wire passage, when performed, including sphincterotomy, when performed, each stent [id number], Endoscopic retrograde cholangiopancreatography (ERCP); with removal of calculi/debris from biliary/pancreatic duct(s) 93187, 51, Endoscopic cannulation of papilla with direct visualization of pancreatic/common bile duct(s) (List separately in addition to code(s) for primary procedure) CPT copyright 2021 [employer]. All rights reserved. The codes documented in this report are preliminary and upon mortgage protection specialist review may be revised to meet current compliance requirements. Vinod Fernandez DO 04/23/2025 3:38:10 PM This report has been signed electronically. Number of Addenda: 0 Note Initiated On: 04/23/2025 2:26 PM
--- NOTE | 2025-04-23 15:38 | OP.PROVAT_ITS ---
04/23/2025 No Primary Care Physician Re : ERCP procedure for Dudley Perea Dear Care Physician This procedure was performed on Wednesday, April 23, 2025. My impressions and recommendations are as follows: Impressions : - A single localized biliary stricture was found in the lower third of the main bile duct. The stricture was benign appearing. - The entire main bile duct, common bile duct and common hepatic duct were moderately dilated, with a stone causing an obstruction. - Choledocholithiasis was found. Complete removal was accomplished by biliary sphincterotomy and balloon extraction. - A biliary sphincterotomy was performed. - The biliary tree was swept. - One temporary stent was placed into the common bile duct. Recommendations : My findings are described in the full procedure note, which is enclosed. If I can be of further assistance, please feel free to contact me at . Sincerely, Vinod Fernandez, 04/23/2025 3:38:10 PM This report has been signed electronically.
--- NOTE | 2025-04-23 15:57 | PCM.POSTANE2 ---
Anesthesia Postop Eval I Sum Postop Eval Completion status Anesthesia document: Postop Eval 1 completed: Yes Anesthesia Postop Eval I Summary Anesthesia Postop Eval I Summary: Anesthesia Postop Eval I: Assessment Summary Airway patent Yes 04/23/25 15:34 [email or web address] Spontaneous unlabored Yes 04/23/25 15:34 [email or web address] respirations Mental status Asleep 04/23/25 15:34 [email or web address] nausea No 04/23/25 15:34 [email or web address] Vomiting No 04/23/25 15:34 [email or web address] Anesthesia Postop Eval I: Fluid Summary Crystalloid volume administer 700 04/23/25 15:34 [email or web address] (ml) Colloids volume administered ( ml) Blood Product volume administered (ml) Total IV fluid infused 700 04/23/25 15:34 [email or web address] Anesthesia Postop Eval I: Summary Notes Anesthesia Complication No 04/23/25 15:34 [email or web address] Anesthesia Complication Comment: Post-operative progress note Anesthesia: Postop Eval II Evaluation Mental status: Awake Pain Level: 0 nausea: No Vomiting: No
[2025-04-24] VITALS (16 sets, daily range): BP systolic 86–111; BP diastolic 51–78; PULSE 53–99; RESP 12–20; TEMP 36.4–37; O2SAT 94–100
[2025-04-24] MEDS: Lactated Ringers 1,000 ML 100 ML IV (01:53)
[2025-04-24 04:35] LABS: Hematocrit 29.6 % (37-47); Hemoglobin 9.8 g/dL (12.0-15.0); Immature Granulocytes Count 0.050 X10^3/uL (0.0-0.0); Mean Corp Hgb Conc 33.1 g/dL (32-36); Mean Corpuscular Volume 84.6 fL (81-99); Mean Platelet Vol. 10.5 fl (6.2-12.0); NRBC Flagged by Analyzer 0 % (0-5); Platelet Count 220 K/mm3 (150-450); RBC Distribution Width CV 14.9 % (11.6-14.6); RBC Distribution Width SD 45.7 fl (35.1-43.9); Red Blood Count 3.50 M/mm3 (4.2-5.4); White Blood Count 10.3 K/mm3 (4.4-11.0)
[2025-04-24 05:04] LABS: AST(SGOT) 110 U/L (<=31); Alanine Aminotransfer ALT/SGPT 475 U/L (<=34); Albumin, Serum 3.8 g/dL (3.5-5.0); Alkaline Phosphatase 223 U/L (35-104); Anion Gap 12 (5-15); BUN 6 mg/dL (4-19); BUN/Creat Ratio 14.2 RATIO (10-20); Calcium,Total 8.8 mg/dL (7.6-11.0); Carbon Dioxide 22.0 mmol/L (21.0-32.0); Chloride 105 mmol/L (98-108); Estimated Creatinine Clearance 172.14 ml/min (50-250); Globulin 2.9 g/dL (2.2-4.2); Glucose 113 mg/dL (70-99); Potassium 3.3 mmol/L (3.3-5.1)
[2025-04-24] MEDS: Piperacil/Tazobactam 3.375 GM in 0.9% Normal Saline (50mL MB+) 50 ML IV (06:06)
--- NOTE | 2025-04-24 07:40 | PN.HOSP_ITS ---
Reason for Visit Chief Complaint: abdominal pain Subjective Subjective Abdominal pain improved. Objective Data Objective Data Vital Signs: Vital Signs Temp Pulse Resp BP Pulse Ox O2 Del Method 36.6 C 62 15 104/64 99 Room Air 04/24/25 06:00 04/24/25 06:00 04/24/25 06:00 04/24/25 06:00 04/24/25 06:00 04/24/25 06:00 Oxygen Delivery Method Room Air Weight: 61.9 kg Body Mass Index (BMI) 22.6 Intake & Output: Intake and Output for Last 24 Hours 04/22/25 04/23/25 04/24/25 23:59 23:59 23:59 Intake Total 4459.17 / 4459.17 1486.67 / 1486.67 713.33 / 713.33 Output Total 2 / Balance 4459.17 / 4459.17 1484.67 / 1484.67 713.33 / 713.33 Lab / Micro Data 04/24/25 04:11 04/24/25 04:11 Labs: Laboratory Results - last 24 hr 04/23/25 05:59: Lipase 543 H 04/24/25 04:11: WBC 10.3, RBC 3.50 L, Hgb 9.8 L, Hct 29.6 L, MCV 84.6, MCH 28.0, MCHC 33.1, RDW Std Deviation 45.7 H, RDW Coeff of Gwendolyn 14.9 H, Plt Count 220, MPV 10.5, Immature Gran % (Auto) 0.500, Neut % (Auto) 80.2 H, Lymph % (Auto) 13.4 L, [place] % (Auto) 5.8, Eos % (Auto) 0.0, Baso % (Auto) 0.1, Absolute Neuts (auto) 8.2 H, Absolute Lymphs (auto) 1.37, Nucleated RBC % 0, Sodium 139, Potassium 3.3, Chloride 105, Carbon Dioxide 22.0, Anion Gap 12, BUN 6, Creatinine 0.43 L, Estim Creat Clear Calc 172.14, Est GFR (MDRD) Non-Af 134, BUN/Creatinine Ratio 14.2, Glucose 113 H, Calcium 8.8, Total Bilirubin 0.63, AST 110 H, ALT 475 H, A lkaline Phosphatase 223 H, Total Protein 6.8, Albumin 3.8, Globulin 2.9, Albumin/Globulin Ratio 1.3 Radiography Diagnostic Testing: Radiology Impression C-Arm Fluoroscopy 04/23/25 08:28 IMPRESSION: Intraoperative fluoroscopy was performed for ERCP. 8 fluoroscopic images were also obtained. Reading Location: [address] Endo Retro Cholangiopancreatogram 04/23/25 08:28 IMPRESSION: Intraoperative fluoroscopy was performed for ERCP. 8 fluoroscopic images were also obtained. Reading Location: [address] Rhythm Strip Rhythm Strip: Sinus Rhythm Physical Exam Const alert and no apparent distress HEENT head/scalp atraumatic and moist oral mucous membranes Resp normal respiratory effort, no retractions, no use of accessory muscles and clear to auscultation bilaterally Cardio regular rate, regular rhythm, S1 normal heart sound and S2 normal heart sound GI normal to inspection, nondistended, normoactive bowel sounds, soft to palpation and non-distended GI Narrative: abdominal pain in epigastrum Extremity normal to inspection and full ROM Assessment & Plan Assessment/Plan (1) Acute gallstone pancreatitis: PLAN: No visible gallstone noted on CT nor abdominal imaging. IV fluids, pain control, clear liquid diet. The ED deformity they reached out to Dr. Fernandez of gastroenterology who will see the patient in consultation. MRCP shows cholelithiasis. Mild dilation of the common bile duct with abrupt narrowing of the ampulla from stricture. ERCP showed A single localized biliary stricture was found in the lower third of the main bile duct. The stricture was benign appearing. The entire main bile duct, common bile duct and common hepatic duct were moderately dilated, with a stone causing an obstruction. Choledocholithiasis was found. Complete removal was accomplished by biliary sphincterotomy and balloon extraction.A biliary sphincterotomy was performed. The biliary tree was swept. One temporary stent was placed into the common bile duct. MILA Cisneros, plan for cholecystectomy today. PLAN: Plan VTE prophylaxis with SCDs. Charges/Coding Visit Charges Inpatient E&M: 73698 Subs Hosp L2
[2025-04-24] MEDS: 0.9% Saline Lock 10 ML Syringe IV ×2 (08:50→16:26)
[2025-04-24] MEDS: Pantoprazole Sodium 40 MG in 0.9% Normal Saline (100mL MB+) 100 ML 300 MG IV (09:53)
--- NOTE | 2025-04-24 11:30 | NURSING ---
pt to OR via bed
[2025-04-24] MEDS: INDOCYANINE GREEN 3.75 MG in Syringe 1.5 ML 999 MG IV (11:39)
[2025-04-24] MEDS: Lactated Ringers 1,000 ML 15 ML IV (11:42)
--- NOTE | 2025-04-24 12:14 | PCM.PRE.AN2 ---
ASA Classification* ASA Classification ASA Classification: 1 and E Assessment & Plan Anesthesia* Anesthesia Assessment Anesthesia Assessment: Discussed sedation and/or anesthesia options, risks, benefits, and alternatives with patient/parents/legal guardian/POA. Questions invited. The patient/parents/legal guardian/POA seems to understand and agrees to proceed with anesthesia plan. Reviewed the physical assessment, medical history, allergy history and patient home medications list prior to surgery/procedure/anesthetic and documented any changes. Performed airway and anesthesia risk assessments. Anesthesia Type Anesthesia Type: General History Source History Obtained from:: Patient (Qualified tuyere fitter was used for the discussion of anesthesia. The ID number of the tuyere fitter is [id number]. The nurse is present during discussion with anesthesia with the help of a etl analyst) and Chart Anesthesia Focused Assessment* Temperature: 98.3 F Pulse Rate: 66 Blood Pressure: 99/53 Respiratory Rate: 15 Pulse Ox: 100 Oxygen Delivery Method: Room Air Airway Assessment Mouth opens: >3 cm Mallampati Score: II Teeth Condition: Intact Neck Range of motion (ROM): Full ROM Labs Anesthesia Preop lab: CBC WBC, (4.4-11.0) 10.3 K/mm3 Today, 04:11 RBC, (4.2-5.4) 3.50 M/mm3 L Today, 04:11 Hgb, (12.0-15.0) 9.8 g/dL L Today, 04:11 Hct, (37-47) 29.6 % L Today, 04:11 Plt Count, (150-450) 220 K/mm3 Today, 04:11 CHEMISTRY Potassium, (3.3-5.1) 3.3 mmol/L Today, 04:11 Sodium, (133-145) 139 mmol/L Today, 04:11 BUN, (4-19) 6 mg/dL Today, 04:11 Creatinine, (0.70-1.20) 0.43 mg/dL L Today, 04:11 Glucose, (70-99) 113 mg/dL H Today, 04:11 COAG Urine Test Negative Negative 04/22/25, 07:40 Pre-Assessment Diagnosis/Proposed Procedure Planned Operative Procedure(s): Robotic cholecystectomy Anesthesia History Anesthesia History - sorter/assay tech: Anesthesia History - sorter/assay tech Hx Hospitalization Any Problems With Anesthesia No 04/23/25 05:15 Cholinesterase deficiency No 04/23/25 05:15 You/Your Family Experience No 04/23/25 05:15 fever (hyperthermia) with Relationship Recent Exposure to Contagious No 04/23/25 05:15 Disease Does patient have nerve No 04/23/25 05:15 stimulator Patient instructed to have No 04/23/25 05:15 device shut off --Does patient have Pacemaker No 04/23/25 11:58 or ICD? When Was Last Pacemaker Check QUESTION #4 FULL TEXT: You/Your Family Experience fever (hyperthermia) with Anesthesia Last Oral Intake Last Oral intake: Last Oral Intake NPO since 00:00 04/23/25 11:58 Meds taken in AM with sips of Yes 04/23/25 11:58 water? Meds patient instructed to See MAR 04/23/25 11:58 take am of surgery PONV PONV - sorter/assay tech: PONV - sorter/assay tech Female HX of Motion Sickness HX of N/V After Surgery Non-Smoker Duration of Surgery greater than 60 minutes Number of Risk Factors PONV Score Height & Weight Height & Weight: Anesthesia: Height & Weight Height 5 ft 5 in 04/23/25 11:58 Weight: 61.9 kg 04/23/25 11:58 Body Mass Index (BMI) 22.6 04/23/25 11:58 Respiratory Assessment Respiratory Assessment - sorter/assay tech: Respiratory Tract Infection Hx - sorter/assay tech Hx Respiratory Tract Infection No 04/23/25 05:15 STOP Sleep Apnea STOP Sleep Apnea - sorter/assay tech: STOP Sleep Apnea - sorter/assay tech Hx Hypertension No 04/22/25 08:25 Hx Sleep Apnea No 04/23/25 16:00 CPAP BIPAP Do you snore loudly (louder No 04/22/25 08:25 than talking or can be heard Do you often feel tired/ No 04/22/25 08:25 fatigued/ sleepy during daytime? Has anyone observed you stop No 04/22/25 08:25 breathing during sleep? STOP Results Negative 04/23/25 15:30 QUESTION #5 FULL TEXT : Do you snore loudly (louder than talking or can be heard through closed doors)? Tobacco Use History Tobacco Use History - sorter/assay tech: Tobacco Use History - sorter/assay tech Tobacco Use Smoking Status Never smoker 04/22/25 08:25 Hx Tobacco Use No 04/22/25 08:25 Years Smoking Packs Smoked per Day Smoking Cessation Date was within the last 15 years Hx Smoking Cessation Date Hx Smoking Cessation Counseling Hematologic Medial History Hematologic Hx - sorter/assay tech: Hematologic Medical Hx - propeller inspector Hx of Blood Transfusion No 04/22/25 08:25 Hx of Transfusion in last 3 No 04/22/25 08:25 Months Date of Last Transfusion (if within last 3 months) Ever experience any problems No 04/22/25 08:25 with transfusion(s)? Specify any problems Hx of Preganancy in last 3 N/A 04/22/25 08:25 Months Nurse Filling Out Transfusion [email or web address] 04/22/25 08:25 & Questions: Date: 04/22/25 04/22/25 08:25 Time: 09:30 04/22/25 08:25 Patient unable to answer at this time (ie. confused, unrespo /Reproduction History /Reproductive History - sorter/assay tech: /Reproductive Hx- sorter/assay tech Hx Now No 04/23/25 05:15 Gestational Age (in weeks): EDC: Hx Hx Para Hx Section SAB No 04/23/25 05:15 Active Medications Active Medications: Current Medications Generic Name Dose Route Start Last Admin Trade Name Freq PRN Reason Stop Dose Admin Hydromorphone HCl 0.2 mg 04/22/25 09:00 04/22/25 23:25 Hydromorphone Inj 0.2 Mg/Ml Syringe IV 0.2 mg Q3H PRN PRN Administration Pain Score 6-10 Sodium Chloride 250 mls @ 15 mls/hr 04/22/25 09:35 IV .[id number] PRN Saline Flush Sodium Chloride 250 mls @ 15 mls/hr 04/22/25 09:35 IV .[id number] PRN Additional IVPB Infusion Lactated Ringer's 1,000 mls @ 100 mls/hr 04/22/25 22:45 04/24/25 11:30 IV 0 mls/hr .Q10H CHRISTIAN Infusion Indocyanine Green 3.75 mg/ N/A 1.5 mls @ 999 mls/hr 04/24/25 12:15 04/24/25 11:39 IV 04/24/25 12:16 999 mls/hr PREOP ONE Administration Piperacillin Sod/Tazobactam 50 mls @ 12.5 mls/hr 04/23/25 14:00 04/24/25 10:06 Sod 3.375 gm/ Sodium Chloride IV Infused Q8 CHRISTIAN Infusion Pantoprazole Sodium 40 mg/ 100 mls @ 300 mls/hr 04/24/25 10:00 04/24/25 10:15 Sodium Chloride IV Infused Q24 CHRISTIAN Infusion Lactated Ringer's 1,000 mls @ 15 mls/hr 04/24/25 11:45 04/24/25 11:42 IV 15 mls/hr .Q48H CHRISTIAN Administration Ketorolac Tromethamine 15 mg 04/22/25 09:00 04/24/25 08:51 Ketorolac 15 Mg/Ml Vial IV 04/27/25 09:01 15 mg Q6H PRN PRN Administration Pain Score 1-10 Ondansetron HCl 4 mg 04/22/25 09:00 04/22/25 10:54 Ondansetron 4 Mg/2 Ml Vial IV 4 mg Q8H PRN PRN Administration NAUSEA/VOMITING Sodium Chloride 10 - 40 ml 04/22/25 09:35 04/24/25 08:50 0.9% Saline Lock 10 Ml Syringe IV 10 ml UD PRN Administration SALINE FLUSH PFSH Medical History no medical history Home Medications ?Medication ?Instructions ?Recorded ?Last Taken ?Type omeprazole 20 mg capsule,delayed 20 mg PO DAILY 04/22/25 Unknown History release Allergy/AdvReac Type Severity Reaction Status Date / Time No Known Allergies Allergy Verified 04/22/25 03:34 Family History no significant family his Surgical History no surgical history Social History Smoking Status: Never smoker alcohol intake: current alcohol intake frequency: a few times a month Review of Systems (Anesthesia) ROS Narrative System reviewed and no additional complaints, except as documented.
--- NOTE | 2025-04-24 13:00 | GALL_PTH ---
PATIENT: ALAN HAM LOC: MS3 U#:[id number] AGE/SX: 30/F [place]OM[place] [facility] [place]04[place]22/[address]: Dr. Dung Agrawal DO : 1995 BED: 1 DIS: 04/25/2025 SPEC #: [id number] RECD: 04/25/25 09:25 STATUS: EDUAR REQ #: [id number] CARLOS: 04/24/25 13:[address]: Dorinda Cisneros DEPT: SURGICAL PATHOLOGY RECD BY: Hood Godoy ENTERED: 04/25/25 10:24 SP TYPE: MIGUE VILLATORO DR: DO Dr. Hernesto Peck MD Dr. Rahsaan Friend, No Primary Care Phys Tissues: A - Gallbladder, NOS Procedures: Surgery Specimen Level III HEADER OPERATION: Robotic cholecystectomy PRE-OP DIAGNOSIS: Gallstone pancreatitis TISSUE SUBMITTED: A- Gallbladder MICROSCOPIC DIAGNOSIS A. Gallbladder, robotic cholecystectomy: - Chronic cholecystitis with cholelithiasis and cholesterolosis. MICROSCOPIC DESCRIPTION Slides are reviewed. GROSS DESCRIPTION A. Received in formalin labeled with the patient's name and date of . Designated as gallbladder is a 7.4 2.4 x 1.9 cm curry-pink to green, fatty, intact and distended gallbladder with attached patent cystic duct (inked black, shaved). A lymph node is not present. Opening reveals dark green, tenacious bile and multiple yellow bosselated choleliths, ranging 0.3 cm to 0.4 cm. The mucosa is green and granular with a maximum wall thickness of 0.2 cm. Cholesterolosis is present. Yard Coupler sections are submitted in 1 cassette. IA 04/25/2025 CPT:57713
[2025-04-24] MEDS: Midazolam 2 MG/2 ML Syringe IV (13:01)
[2025-04-24] MEDS: Lidocaine 1% (5 ml sdv) 5 ML Vial IV (13:07)
[2025-04-24] MEDS: fentaNYL 100 MCG/2 ML Ampul 200 MCG IV (13:27)
[2025-04-24] MEDS: Ketorolac 30 MG/ML Syringe IV (13:52)
[2025-04-24] MEDS: Lactated Ringers 2,000 ML 2000 ML IV (13:55)
[2025-04-24] MEDS: Bupiv/Epi 0.25% 30 ML Vial (14:01)
--- NOTE | 2025-04-24 14:02 | OP.PCM_ITS ---
Operative Report (Standard) Operative Information Date of Procedure: 04/24/25 Pre-Operative Diagnosis: Cholelithiasis, acute cholecystitis, choledocholithiasis status post ERCP Post-Operative Diagnosis: Same Surgery/Procedure Performed: Robotic cholecystectomy with ICG billing adjudicator: Yes Manufacturing Sales Representative: Megan Lee Tasks completed by first officer and flight instructor: Opening & closing Type of Anesthesia: General/Supplemental RN Documented Start/Stop Times: Operation Date: 04/24/25 13:00 Case Time Into Pre-Op 04/24/25 11:31 Out of Pre-Op 04/24/25 12:56 Anesthesia Start 04/24/25 13:01 Into Room 04/24/25 13:01 Procedure Start 04/24/25 13:19 Procedure End 04/24/25 14:09 Anesthesia End 04/24/25 14:13 Out of Room 04/24/25 14:13 Into Recovery 04/24/25 14:15 Procedure Start Time: 13:19 Procedure Stop Time: 14:09 Select all DRAINS/GRAFTS/IMPLANTS that apply: None Special Medications: Cefotetan 2 g IV x 1 Estimated Blood Loss: < 10 cc Specimen collected: Yes Description of specimen(s) removed: Gallbladder Description of surgery: Indications: this is a 30 year-old female who developed abdominal pain/nausea/vomiting and on workup was found to have choledocholithiasis status post ERCP, acute cholecystitis, with a normal common bile duct. Laparoscopic cholecystectomy was elected. Description procedure: The patient was placed on operating table in supine position. A timeout was completed verifying correct patient, procedure, site, position and special equipment prior to beginning procedure. General Anesthesia was induced. The abdomen was prepped and draped in usual sterile fashion. An incision was made in the natural skin line below the umbilicus. The fascia was elevated and incised. The peritoneum was elevated and incised. Entry into the peritoneum was confirmed visually and no bowel was noted in the vicinity of the incision. Ariza trocar was placed. The abdomen was insufflated with carbon dioxide to a pressure of 12-15 mmHg. Patient tolerated insufflation well. The laparoscope was then inserted and abdomen inspected. No injuries from initial trocar placement were noted. Additional trochars were then inserted in the following locations 8 mm trocar left upper quadrant and 2 more 8 mm trochars in right lower quadrant and left lower quadrant. The abdomen was inspected no abnormalities were found. The table is placed in reverse Trendelenburg position with the right side up. Robot was docked. The adhesions between the gallbladder and omentum were taken down carefully. The dome of the gallbladder was grasped with atraumatic grasper passed through the lateral port and retracted over the dome of the liver. Infundibulum was the n grasped with atraumatic grasper through the midclavicular port and retracted to the right lower quadrant. This maneuver exposed Calot's triangle. The peritoneum overlying the gallbladder infundibulum was then incised and cystic duct and artery identified and circumferentially dissected. ICG was used to visualize the cystic duct. The cystic duct and artery were then doubly clipped and divided close to the gallbladder. The gallbladder then dissected from its peritoneal attachments by electrocautery. Hemostasis was checked and The gallbladder fossa was irrigated with saline and hemostasis obtained. There is no evidence of bleeding from the gallbladder fossa or cystic artery leakage of bile from the cystic duct stump. Robot was undocked. Secondary trochars removed under direct vision. No bleeding was noted the trocar sites. The laparoscope was withdrawn and umbilical trocar removed. The abdomen was allowed to collapse. The gallbladder was removed using the endoscopic retrieval bag through the umbilical port. The gallbladder is passed off table as specimen.The fascia of the 12 mm trocar was closed with a [id number] 0 Vicryl suture. The skin was closed with sutures of 4-0 Monocryl and Steri-Strips. The patient was extubated. The patient tolerated procedure well and was taken to the postanesthesia care unit in stable condition. Surgical Findings: See operative report Complications Complications: No
--- NOTE | 2025-04-24 14:06 | DCINST_ITS ---
Discharge Instructions Diet Discharge Diet: Light diet - advance as tolerated Activity Discharge Activity: May Not Drive (while taking narcotic pain medications.) May shower in (days): 1 Lifting Restrictions: no lifting >20 lbs x 2 wks, no strenuous exercise for 4 wks Dressing / Incision Call your doctor if your incision/area has: Continuous Slow Oozing, Sudden Increased Bleeding, Increased Pain/ Swelling, Increased Redness, Foul Smelling Discharge and Swelling at the incision site Call your doctor if you observe: Fever of 101 or Higher Remove Dressing in: 2 days Cleanse incision/area with: Soap & Water Additional Dressing/Incision Instructions:: Steri-Strips will fall off in 7 to 10 days, if they do not fall off okay to remove after 10 days. Follow Up Care Please Follow Up With: Dorinda Cisneros MD When: Call the office for a follow-up appointment 2 weeks; after 5 PM and on the weekends call [phone] with any concerns. Test Results: Test results from this visit will be discussed in further detail at your follow- up appointment, if applicable. Discharge Plan Admission Admit Date/Time: 04/22/25 07:56 Attending Provider: Dung Agrawal Primary Care Provider: Care Physician,No Primary Consulting Providers: Hernesto Willams; Vinod Fernandez; Dorinda Cisneros Instructions Additional Instructions / Restrictions: Okay to take ibuprofen 400-600 mg PO q6hr PRN and Tylenol 650 to 1000 mg p.o. every 6 hours as needed along with the oxycodone. Take all pain meds with food. Oxycodone can cause constipation recommend taking daily stool softener (i.e. Colace/docusate) while taking the pain meds. Recommend starting some MiraLAX in 1 to 2 days if no bowel movement. If still no bowel movement the following day recommend taking additional MiraLAX versus magnesium citrate half the bottle and waiting 4-6 hours if still no results take the other half the bottle. Discharge Orders/Prescriptions Prescriptions: New oxycodone 5 mg capsule 5 mg PO Q6H PRN (Reason: pain) 3 Days Qty: 10 0RF No Action omeprazole 20 mg capsule,delayed release(DR/EC) 20 mg PO DAILY Referrals / Follow Up: Care Physician,No Primary [Primary Care Provider, Medical] Disposition Disposition (needs filled in before D/C Order can be placed): Home, Self Care
--- NOTE | 2025-04-24 14:20 | PCM.POST.ANE ---
Anesthesia: Postop Eval I Current Vital Signs Temperature: 98.6 F Pulse Rate: 99 Blood Pressure: 111/65 Respiratory Rate: 20 Pulse Ox: 95 Oxygen Delivery Method: Room Air Assessment Airway patent: Yes Spontaneous unlabored respirations: Yes Mental status: Awake nausea: No Vomiting: No Anesthesia Complication: No Fluid Hydration Crystalloid volume administer (ml): 1,300 Total IV fluid infused: 1,300 Progress Note Anesthesia document: Postop Eval 1 completed: Yes
--- NOTE | 2025-04-24 16:14 | POSTOPAN2_ITS ---
Anesthesia Postop Eval I Sum Postop Eval Completion status Anesthesia document: Postop Eval 1 completed: Yes Anesthesia Postop Eval I Summary Anesthesia Postop Eval I Summary: Anesthesia Postop Eval I: Assessment Summary Airway patent Yes 04/24/25 14:21 RESIDENT [email or web address].[email or web address] Spontaneous unlabored Yes 04/24/25 14:21 RESIDENT ATHLETIC TRAINER.[email or web address] respirations Mental status Awake 04/24/25 14:21 RESIDENT ATHLETIC TRAINER.[email or web address] nausea No 04/24/25 14:21 RESIDENT ATHLETIC TRAINER.[email or web address] Vomiting No 04/24/25 14:21 RESIDENT ATHLETIC [email or web address].[email or web address] Anesthesia Postop Eval I: Fluid Summary Crystalloid volume administer 1,300 04/24/25 14:21 RESIDENT ATHLETIC TRAINER.[email or web address] (ml) Colloids volume administered ( ml) Blood Product volume administered (ml) Total IV fluid infused 1,300 04/24/25 14:21 RESIDENT ATHLETIC TRAINER.[email or web address] Anesthesia Postop Eval I: Summary Notes Anesthesia Complication No 04/24/25 14:21 RESIDENT ATHLETIC TRAINER.[email or web address] Anesthesia Complication Comment: Post-operative progress note Anesthesia: Postop Eval II Evaluation Mental status: Awake and Calm Pain Level: 1 nausea: No Vomiting: No Complications Anesthesia Complication: No
--- NOTE | 2025-04-24 16:14 | PCM.POSTANE2 ---
Anesthesia Postop Eval I Sum Postop Eval Completion status Anesthesia document: Postop Eval 1 completed: Yes Anesthesia Postop Eval I Summary Anesthesia Postop Eval I Summary: Anesthesia Postop Eval I: Assessment Summary Airway patent Yes 04/24/25 14:21 [email or web address] Spontaneous unlabored Yes 04/24/25 14:21 [email or web address] respirations Mental status Awake 04/24/25 14:21 [email or web address] nausea No 04/24/25 14:21 [email or web address] Vomiting No 04/24/25 14:21 [email or web address] Anesthesia Postop Eval I: Fluid Summary Crystalloid volume administer 1,300 04/24/25 14:21 [email or web address] (ml) Colloids volume administered ( ml) Blood Product volume administered (ml) Total IV fluid infused 1,300 04/24/25 14:21 [email or web address] Anesthesia Postop Eval I: Summary Notes Anesthesia Complication No 04/24/25 14:21 [email or web address] Anesthesia Complication Comment: Post-operative progress note Anesthesia: Postop Eval II Evaluation Mental status: Awake and Calm Pain Level: 1 nausea: No Vomiting: No Complications Anesthesia Complication: No
--- NOTE | 2025-04-24 20:13 | EKG12_ITS ---
Test Reason : CP Blood Pressure : */* mmHG Vent. Rate : 56 BPM Atrial Rate : 56 BPM P-R Int : 138 ms QRS Dur : 90 ms QT Int : 440 ms P-R-T Axes : 29 61 32 degrees QTcB Int : 424 ms Sinus bradycardia Otherwise normal ECG When compared with ECG of 23-Apr-2025 08:02, No significant change was found Confirmed by QUYNH NO ([id number]), magazine editor CHRISTOPHER CARRILLO ([id number]) on 04/28/2025 6:44:46 AM Referred By: GAURAV Confirmed By: QUYNH NO
--- NOTE | 2025-04-24 20:30 | RAD_ITS ---
PROCEDURE: CHEST 1 VIEW (PORTABLE) 04/24/2025 REASON FOR EXAM: CHEST PAIN TECHNIQUE: Frontal view of the chest. FINDINGS: The heart is normal in size. The lungs are clear. No acute osseous abnormalities. RAD/Chest 1 View (Portable) IMPRESSION: No Acute Findings. Reading Location: [id number]
--- NOTE | 2025-04-24 20:33 | PCM.HOSP.N ---
Hospitalist Note Pt reports epigastric abdominal and midsternal chest pain s/p cholecystectomy today, and having had an ERCP yesterday. Denies belching, bloating. Was administered ondansetron and Oxy IR recently, having received Toradol by previous RN. ECG performed and reviewed, demonstrated SB with a rate of 56, Jo 138ms, QRS 90ms, QT 440ms. No ectopy or elevations noted. I ordered STAT CXR, troponin x1, and mylanta II 30ml x1. 8-CXR reviewed, the heart is normal in size, lungs are clear. Troponin less than 6. Between Mylanta II and recent Oxy IR, pt denies CP currently.
[2025-04-24 21:25] LABS: Troponin T High Sensitivity < 6 ng/L (<=14)
[2025-04-25 03:01] VITALS: BP 96/58; PULSE 66; RESP 15; TEMP 36.6; O2SAT 98
--- NOTE | 2025-04-25 06:58 | NURSING ---
04/24/25 @ 1999. pt c/o abd pain and also upper chest pain /heaviness that radiates across upper chest. pt requesting EKG. EKG obtained and noted to be SBR, HR 57. new orders from hospitalist PATTERN MAKER PROGRAMER include troponin x 1, CXR and mylanta po for indigestion. all were negative and patient made aware.
--- NOTE | 2025-04-25 07:17 | PN.SURG_ITS ---
Subjective Subjective Patient seen and examined during AM rounds. She is resting in bed. Nursing notes that patient was complaining of pain. They stated this was despite use of all as needed pain medications. On arrival to the room patient complaining primarily of right shoulder pain and pain up underneath her rib cage. Phone manager recruitment was used to bridge communication barrier. Objective Data Objective Data Vital Signs: Vital Signs Temp Pulse Resp BP Pulse Ox O2 Del Method O2 Flow Rate 97.9 F 66 15 96/58 L 98 Room Air 2 04/25/25 03:01 04/25/25 03:01 04/25/25 03:01 04/25/25 03:01 04/25/25 03:01 04/25/25 04:00 04/24/25 17:56 Oxygen Flow Rate (L/min) 2 Oxygen Delivery Method Room Air Weight: 136 lb 7.458 oz Body Mass Index (BMI) 22.6 Intake & Output: Intake and Output for Last 24 Hours 04/23/25 04/24/25 04/25/25 23:59 23:59 23:59 Intake Total 1486.67 / 1486.67 1864.83 / 2064.83 200 / 200 Output Total Balance 1484.67 / 1484.67 1854.83 / 2054.83 200 / 200 Lab / Micro Data 04/24/25 04:11 04/25/25 07:35 Labs: Laboratory Results - last 24 hr 04/24/25 20:54: Troponin T High Sens < 6 Radiography Diagnostic Testing: Radiology Impression Chest X-Ray 04/24/25 20:30 IMPRESSION: No Acute Findings. Reading Location: [address] Rhythm Strip Rhythm Strip: Sinus Rhythm Physical Exam Const oriented x3 Constitutional Narrative: Mild distress from abdominal discomfort Resp normal respiratory effort GI GI Narrative: Nondistended, soft, operative dressings with minimal bloody drainage. Overall reassuring. Assessment & Plan Assessment/Plan (1) Acute gallstone pancreatitis: PLAN: Patient 30-year-old female postop day 1 from robot-assisted cholecystectomy. She is Macedonian-speaking only but manager recruitment is employed to assist with evaluation. Gauging from her exam she has primarily symptomatic from probable trapped gas. I explained that this is best addressed with ambulation and mobilization. Patient confirmed understanding. Labs were checked to be sure there was nothing being overlooked and these labs reflect ongoing downtrend of patient's liver function testing. On attempted reevaluation on the floor I was notified by nursing that patient had experienced significant relief of her pain symptoms and was granted discharge to home by the hospitalist service. Mateo Morales MD General Surgery Endocrine Surgery Pager: [facility] [address] [place] [address], [facility], [address] [place] [address] Office: [phone] Charges/Coding Visit Charges Inpatient E&M: 85742 Subs Hosp L2
--- NOTE | 2025-04-25 07:38 | PN.HOSP_ITS ---
Reason for Visit Chief Complaint: abdominal pain Subjective Subjective Conversation between us using [employer] Translate with her permission. Not feeling well this AM, but reevaluated this afternoon and has eaten. Concerned that she hasn't had a BM yet. Objective Data Objective Data Vital Signs: Vital Signs Temp Pulse Resp BP Pulse Ox O2 Del Method O2 Flow Rate 36.6 C 66 15 96/58 L 98 Room Air 2 04/25/25 03:01 04/25/25 03:01 04/25/25 03:01 04/25/25 03:01 04/25/25 03:01 04/25/25 04:00 04/24/25 17:56 Oxygen Flow Rate (L/min) 2 Oxygen Delivery Method Room Air Weight: 61.9 kg Body Mass Index (BMI) 22.6 Intake & Output: Intake and Output for Last 24 Hours 04/23/25 04/24/25 04/25/25 23:59 23:59 23:59 Intake Total 1486.67 / 1486.67 1864.83 / 2064.83 200 / 200 Output Total Balance 1484.67 / 1484.67 1854.83 / 2054.83 200 / 200 Lab / Micro Data 04/24/25 04:11 04/25/25 07:35 Labs: Laboratory Results - last 24 hr 04/24/25 20:54: Troponin T High Sens < 6 Radiography Diagnostic Testing: Radiology Impression Chest X-Ray 04/24/25 20:30 IMPRESSION: No Acute Findings. Reading Location: [address] Rhythm Strip Rhythm Strip: Sinus Rhythm Assessment & Plan Assessment/Plan (1) Acute gallstone pancreatitis: PLAN: No visible gallstone noted on CT nor abdominal imaging. IV fluids, pain control, clear liquid diet. The ED deformity they reached out to Dr. Fernandez of gastroenterology who will see the patient in consultation. MRCP shows cholelithiasis. Mild dilation of the common bile duct with abrupt narrowing of the ampulla from stricture. ERCP showed A single localized biliary stricture was found in the lower third of the main bile duct. The stricture was benign appearing. The entire main bile duct, common bile duct and common hepatic duct were moderately dilated, with a stone causing an obstruction. Choledocholithiasis was found. Complete removal was accomplished by biliary sphincterotomy and balloon extraction.A biliary sphincterotomy was performed. The biliary tree was swept. One temporary stent was placed into the common bile duct. Robotic cholecystectomy performed 04/24. PLAN: Plan VTE prophylaxis with SCDs.
[2025-04-25 08:36] LABS: AST(SGOT) 86 U/L (<=31); Alanine Aminotransfer ALT/SGPT 357 U/L (<=34); Albumin, Serum 3.5 g/dL (3.5-5.0); Alkaline Phosphatase 175 U/L (35-104); Anion Gap 8 (5-15); BUN 11 mg/dL (4-19); BUN/Creat Ratio 21.6 RATIO (10-20); Bilirubin, Direct 0.18 mg/dL (0.00-0.30); Calcium,Total 8.5 mg/dL (7.6-11.0); Carbon Dioxide 25.3 mmol/L (21.0-32.0); Chloride 105 mmol/L (98-108); Estimated Creatinine Clearance 151.06 ml/min (50-250); Globulin 2.8 g/dL (2.2-4.2); Glucose 103 mg/dL (70-99); Potassium 3.4 mmol/L (3.3-5.1)
[2025-04-25 10:27] VITALS: BP 108/69; PULSE 61; RESP 16; TEMP 36.4; O2SAT 100
--- NOTE | 2025-04-25 13:33 | PCM.DC.SUM ---
Providers Date of Admission: 04/22/25 Primary Care Physician: Kristine Primary Care Phys Consultations 04/22/25 08:27 Consult: Gastroenterology Routine Consulting Provider: [facility] Reason for Consult: pancreatitis EMERGENT Consult: No Notified: Yes Date Notified: 04/22/25 Time Notified: 08:02 Method of Notification: ED Physician Initiated 04/23/25 16:19 Consult: General Surgery Routine Consulting Provider: Dorinda Cisneros Reason for Consult: choledocholithiasis EMERGENT Consult: No Notified: Yes Date Notified: 04/23/25 Time Notified: 16:19 Method of Notification: Verbal Reason For Visit: GALLSTONE PANCREATITIS Diagnosis Discharge Diagnosis (1) Acute gallstone pancreatitis: Status: Acute Code(s): K85.10 - Biliary acute pancreatitis without necrosis or infection Plan: No visible gallstone noted on CT nor abdominal imaging. IV fluids, pain control, clear liquid diet. The ED deformity they reached out to Dr. Fernandez of gastroenterology who will see the patient in consultation. MRCP shows cholelithiasis. Mild dilation of the common bile duct with abrupt narrowing of the ampulla from stricture. ERCP showed A single localized biliary stricture was found in the lower third of the main bile duct. The stricture was benign appearing. The entire main bile duct, common bile duct and common hepatic duct were moderately dilated, with a stone causing an obstruction. Choledocholithiasis was found. Complete removal was accomplished by biliary sphincterotomy and balloon extraction.A biliary sphincterotomy was performed. The biliary tree was swept. One temporary stent was placed into the common bile duct. Robotic cholecystectomy performed 04/24. Plan VTE prophylaxis with SCDs. Medications at Discharge Home Medications omeprazole 20 mg capsule,delayed release 20 mg PO DAILY 04/22/25 oxycodone 5 mg capsule 5 mg PO Q6H PRN pain 3 days #10 caps 04/24/25 acetaminophen 325 mg tablet 1,000 mg (3.0769 x 325 mg) PO Q8H PRN PRN PAIN #0 tabs 04/25/25 Hospital Course Operations cholecystecomy and ERCP Summary of Care Provided Hospital Course: Greater than 30 minutes spent on discharge. Pt presents w abdominal pain. She was found to have gallstone pancreatitis. She underwent an ERCP that showed choledocholithiasis. She underwent a lap baldo on 04/24. She had some apprehension about going home that night. This AM she had some abdominal pain, but has been doing well. Clinically, no an ileus, but may be due to the insufflation from the surgery. Overall improved and stable to go home. Physical Exam Const alert and no apparent distress Constitutional Narrative: non toxic. afebrile. HEENT normocephalic and head/scalp atraumatic Resp normal respiratory effort, no retractions, no use of accessory muscles and clear to auscultation bilaterally Cardio regular rate, regular rhythm, S1 normal heart sound and S2 normal heart sound GI GI Narrative: no epigastric tenderness. Soft, slightly distended. Weight / BMI Weight Weight: 61.9 kg Body Mass Index (BMI) 22.6 ABG / Lab / Microbiology Data 04/24/25 04:11 04/25/25 07:35 Laboratory: Laboratory Results - last 24 hr 04/24/25 20:54: Troponin T High Sens < 6 04/25/25 07:35: Sodium 139, Potassium 3.4, Chloride 105, Carbon Dioxide 25.3, Anion Gap 8, BUN 11, Creatinine 0.49 L, Estim Creat Clear Calc 151.06, Est GFR (MDRD) Non-Af 130, BUN/Creatinine Ratio 21.6 H, Glucose 103 H, Calcium 8.5, Total Bilirubin 0.47, Direct Bilirubin 0.18, AST 86 H, ALT 357 H, Alkaline Phosphatase 175 H, Total Protein 6.3, Albumin 3.5, Globulin 2.8 Radiography Diagnostic Testing: Radiology Impression Chest X-Ray 04/24/25 20:30 IMPRESSION: No Acute Findings. Reading Location: [id number]/C Instructions May shower in (days): 1 Call your doctor if your incision/area has: Continuous Slow Oozing, Sudden Increased Bleeding, Increased Pain/ Swelling, Increased Redness, Foul Smelling Discharge and Swelling at the incision site Call your doctor if you observe: Fever of 101 or Higher Cleanse incision/area with: Soap & Water Additional Dressing/Incision Instructions: Steri-Strips will fall off in 7 to 10 days, if they do not fall off okay to remove after 10 days. DC O2, CPAP, BIPAP Needs Home O2 Discharge instructions: No Please Follow Up With: Dorinda Cisneros MD When: Call the office for a follow-up appointment 2 weeks; after 5 PM and on the weekends call [phone] with any concerns. Meaningful Use Info Meaningful Use Meaningful Use Diagnoses (Choose all that apply): None applicable Discharge Plan Admission Admit Date/Time: 04/22/25 07:56 Primary Reason for Your Visit: Gallstone pancreatitis. Attending Provider: Dung Agrawal Primary Care Provider: Care Physician,No Primary Consulting Providers: Hernesto Willams; Vinod Fernandez; Dorinda Cisneros Instructions Additional Instructions / Restrictions: You had gallstone from your gallbladder that blocked your bile duct, causing your abdominal pain. You had a procedure to remove that stone, which was successful. Then your gallbladder was removed. Please follow up with Dr. Cisneros in the office in the next 2 weeks. If you have worsening abdominal pain, notify your physician or return to the emergency room. Ten?a un c?lculo biliar en la ves?cula que obstru?a el conducto biliar, lo que le causaba dolor abdominal. Se someti? a un procedimiento para extraerlo, el cual fue exitoso. Posteriormente, le extirparon la ves?cula. Por favor, consulte con el Dr. Cisneros en [facility] consultorio en las pr?ximas dos semanas. Si el dolor abdominal empeora, notifique a mcelroy m?dico o acuda a urgencias. Okay to take ibuprofen 400-600 mg PO q6hr PRN and Tylenol 650 to 1000 mg p.o. every 6 hours as needed along with the oxycodone. Take all pain meds with food. Oxycodone can cause constipation recommend taking daily stool softener (i.e. Colace/docusate) while taking the pain meds. Recommend starting some MiraLAX in 1 to 2 days if no bowel movement. If still no bowel movement the following day recommend taking additional MiraLAX versus magnesium citrate half the bottle and waiting 4-6 hours if still no results take the other half the bottle. Se puede rosalie ibuprofeno 400-600 mg por v?a oral cada 6 horas seg?n sea necesario y Tylenol 650-1000 mg por v?a oral cada 6 horas, seg?n sea necesario, junto con la oxicodona. [place] todos los analg?sicos con alimentos. La oxicodona puede causar estre?imiento. Se recomienda rosalie un ablandador de heces (p. ej., Colace/docusato) a diario mientras nava los analg?sicos. Si no hay evacuaci?n intestinal, se recomienda comenzar con MiraLAX 1 o 2 d?as despu?s. Si al d?a siguiente no hay evacuaci?n intestinal, se recomienda rosalie m?s MiraLAX que la mitad del frasco de citrato de magnesio y esperar de 4 a 6 horas. Si no hay resultados, tome la otra mitad del frasco. Discharge Orders/Prescriptions Prescriptions: New oxycodone 5 mg capsule 5 mg PO Q6H PRN (Reason: pain) 3 Days Qty: 10 0RF acetaminophen 325 mg Tablet 1,000 mg PO Q8H PRN PRN (Reason: PAIN) Qty: 0 0RF Continued omeprazole 20 mg capsule,delayed release(DR/EC) 20 mg PO DAILY Referrals / Follow Up: Care Physician,No Primary [Primary Care Provider, Medical] Dorinda Cisneros MD [Med Staff - Active Staff, General Surgery] - Within 2 Weeks Disposition Disposition (needs filled in before D/C Order can be placed): Home, Self Care Charges/Coding Visit Charges Inpatient E&M: 46700 Disch Hosp >30min
--- NOTE | 2025-04-25 19:37 | ANES.CONFIRM ---
Anesthesia: Confirm Documents Multiple Procedures on Account (2) Confirmed Documents: Yes
== END 2025-04-25 14:55 | disposition home or self-care (01) | DRG 418 ==
LOC: ED 06:36 → MS3 08:10
PROVIDERS: Internal Medicine Gastroenterology; Physician Assistant; Surgery; Emergency Provider Emergency Medicine
PROC: 0FHB8DZ Insertion of Intraluminal Device into Hepatobiliary Duct, Via Natural or Artificial Opening Endoscopic (ICD-10-PCS; CPT 43260; principal; 2025-04-23 14:40)
PROC: 0FT44ZZ Resection of Gallbladder, Percutaneous Endoscopic Approach (ICD-10-PCS; CPT 47562; principal; 2025-04-24 12:40)
DX: K85.10 Biliary acute pancreatitis without necrosis or infection (principal); K80.63 Calculus of gallbladder and bile duct with acute cholecystitis with obstruction; R17 Unspecified jaundice; K82.8 Other specified diseases of gallbladder; R74.8 Abnormal levels of other serum enzymes; Z79.899 Other long term (current) drug therapy
CPT/HCPCS: 36415; 71045; 74177; 74181; 74330; 76000; 76705; 80048; 80053; 80076; 81001; 81025; 82077; 83690; 84484; 84703; 85025; 88304; 93005; 99283; C2625; Q9967; A4216; J2405